=== PATIENT | male | born 1930 | race Caucasian/White ===

== ENCOUNTER 2018-10-01 17:12 | Inpatient (IN) | payer MEDICARE, OTHER ==
[~2018-10-01] VITALS: Ht 175.3 cm; Wt 60.5 kg
[2018-10-01 17:30] VITALS: BP 115/67
[2018-10-01 18:12] LABS: BASOPHILS 0.5 % (0-2); EOSINOPHILS 1.5 % (0-7); HEMOGLOBIN 10.9 g/dL (13.5-17.5); IMMATURE GRANULOCYTES 0.1 % (0-5); LYMPHOCYTES 23.1 % (15-50); MCH 29.7 pg (26.0-34.0); MCHC 32.1 g/dL (31.0-37.0); MCV 92.6 fL (80.0-100.0); MEAN PLATELET VOLUME 9.7 fL (7.4-10.4); MONOCYTES 10.1 % (2-11); NEUTROPHILS 64.7 % (40-80); PLATELET COUNT 255 10x3/uL (130-400); RBC 3.67 10x6/uL (4.20-6.10); RDW 15.9 % (11.5-14.5); WBC 7.5 10x3/uL (4.8-10.8)
[2018-10-01 18:21] LABS: APTT 37.2 SECONDS (22.8-39.4); INR 1.15 (0.85-1.17); PROTIME 14.2 SECONDS (11.6-15.0)
[2018-10-01 18:30] VITALS: BP 118/70
[2018-10-01 18:35] LABS: ALBUMIN 3.6 g/dL (3.4-5.0); ALKALINE PHOSPHATASE 103 U/L (46-116); ALT (SGPT) 18 U/L (10-68); BILIRUBIN - TOTAL 0.62 mg/dL (0.2-1.3); CALC OSMOLALITY 278 mosm/kg (275-300); CALCIUM 8.9 mg/dL (8.5-10.1); CARBON DIOXIDE 22.5 mmol/L (21.0-32.0); CHLORIDE - SERUM 98 mmol/L (98-107); CREATININE - SERUM 1.3 mg/dL (0.6-1.3); POTASSIUM - SERUM 4.4 mmol/L (3.5-5.1); PROTEIN - SERUM 7.4 g/dL (6.4-8.2); SODIUM 136 mmol/L (136-145); UREA NITROGEN 38 mg/dL (7-18); eGFR NON AFRICAN AMERICAN 55 mL/min (90-120)
[2018-10-01 18:36] LABS: GLUCOSE 68 mg/dL (74-106)
[2018-10-01 18:47] LABS: CKMB 5.7 U/L (0.0-3.6); CREATINE KINASE 127 UL (21-232); PRO BNP 19163 pg/mL (0-450); TROPONIN-I 0.052 ng/mL (0.000-0.060)
[2018-10-01 19:15] VITALS: BP 126/75
--- NOTE | 2018-10-01 19:33 | MORECARE ---
CASE MANAGEMENT DISCHARGE SUMMARY PATIENT: ISADORA HERNANDEZ UNIT: [id number] ADM DATE: 10/01/18 AGE: 88 : [birth year] SEX: M ROOM/BED: D.E12 AUTHOR: RANDALLDOC PHYSICIAN: REFERRING PHYSICIAN: ABBI JEAN BAPTISTE MD DATE OF SERVICE: 10/01/18 Discharge Plan Patient Name: ISADORA HERNANDEZ Facility: [facility]:[place] : 1930 Planned Disposition: Home with Home Health Anticipated Discharge Date: 10/04/18 Discharge Date: Expected LOS: 3 Initial Reviewer: [email or web address] Initial Review Date: 10/01/2018 Generated: 10/01/18 8:33 pm DCP- Discharge Planning Updated by [email or web address]: Bhumika Alvarez on 10/01/18 6:[address] Patient Name: ISADORA HERNANDEZ Admission Status: ER Accout number: [id number] Admission Date: 10-01-2018 : 1930 Admission Diagnosis: Attending: ABBI JEAN BAPTISTE Current LOS: 1 Anticipated DC Date: 10-04-2018 Planned Disposition: Home with Home Health Primary Insurance: MEDICARE A & B Discharge Planning Comments: CM met with patient to complete initial dc planning assessment. CM educated patient on the CM role and verbal consent given by patient to complete assessment. Patient lives at home with his . At discharge patient plans to return home and feels this is a safe discharge. CM discussed availability of home health, rehab services, and medical equipment. Patient denied known discharge needs at this time. CM is not sure if patient actually has home health or not. CM will continue to follow and will assist as needed with dc plans/needs. Ruby On Rails Developer: Bhumika Alvarez RN, [facility] DCPIA - Discharge Planning Initial Assessment Updated by [id number]: Bhumika Alvarez on 10/01/18 7:30 pm * Is the patient Alert and Oriented? Yes * How many steps to enter\exit or inside your home? Three * PCP Dr. Elsie [facility] * [facility] * Preadmission Environment Home with Family * ADLs Independent * Equipment Rolling Walker * List name and contact numbers for known caregivers / representatives who currently or will assist patient after discharge: Tran Hernandez - - [phone] Ion Camejo - step son - [phone] Kiesha Camejo - dtr in law - [phone] * Verbal permission to speak to the caregivers and representatives has been obtained from the patient. Yes * Community resources currently utilized Home Health * Please name any agencies selected above. Said home health comes from time to time. He wasnt sure if it was [facility] but said they were out of [facility]. * Additional services required to return to the preadmission environment? No * Can the patient safely return to the preadmission environment? Yes * Has this patient been hospitalized within the prior 30 days at any hospital? No Patient Name: ISADORA HERNANDEZ Page [id number] at 1933 All edits/amendments must be made on the electronic document DICTATION DATE: 10/01/181932 EMERGENCY MAN: JOHNNIE 10/01/181932 RPT#: [id number] NM DATE: STATUS: ADM IN [facility] [address] [place] [address] END OF REPORT
[2018-10-01 20:00] VITALS: BP 106/63
[2018-10-01 20:12] LABS: % SATURATION 11 % (15-55); IRON 34 ug/dl (35-150); TOTAL IRON BIND CAPACITY 285 ug/dl (260-445); UNSAT IRON BIND CAPACITY 251 ug/dl (150-375)
--- NOTE | 2018-10-01 20:59 | NUR ---
RECIEVED TO ROOM 2130 FROM ER VIA STRETCHER. PT A&O. RESPERATIONS NONLABORED ON O2 AT 2 LITERS VIA NC. VITALS STABLE. IV TO RIGHT FA SL, SITE CLEAN AND DRY. MED REC AND HISTORY OBTAINED. PT DENIES PAIN OR NEEDS, BED LOW, CL IN REACH.
[2018-10-01 21:24] LABS: CKMB 5.4 U/L (0.0-3.6); CREATINE KINASE 120 UL (21-232); TROPONIN-I 0.054 ng/mL (0.000-0.060)
[2018-10-01] MEDS ORDERED: POTASSIUM99 M1 PO (21:56)
[2018-10-01] MEDS ORDERED: TOPROL XL25 MG PO (21:56)
[2018-10-01] MEDS ORDERED: ELIQUIS2.5 MG PO (21:57)
[2018-10-01] MEDS ORDERED: GLUCOPHAGE500 MG PO (21:58)
[2018-10-01] MEDS ORDERED: BAYER CHEWABLE81 MG PO (21:58)
[2018-10-01] MEDS ORDERED: TRAZODONE HCL150 MG PO (21:59)
[2018-10-01] MEDS ORDERED: LIPITOR80 MG PO (21:59)
[2018-10-01] MEDS ORDERED: LASIX40 MG PO (22:00)
[2018-10-01] MEDS ORDERED: PHENERGAN25 M1 PO (22:00)
[2018-10-01] MEDS ORDERED: SLOW RELEASE I160 MG PO (22:01)
[2018-10-01] MEDS ORDERED: GLUCOTROL 5 MG T5 MG PO (22:02)
--- NOTE | 2018-10-01 22:19 | NUR ---
SANDWHICH TRAY AND CUP OF COFFEE GIVEN TO PT. NO OTHER NEEDS VOICED AT THIS TIME.
--- NOTE | 2018-10-02 00:21 | NUR ---
RESTING WITH EYES CLOSED, RESPERATIONS NON LABORED. NO S/S DISTRESS NOTED.
[2018-10-02 03:03] LABS: BASOPHILS 0.3 % (0-2); EOSINOPHILS 1.2 % (0-7); HEMATOCRIT 33.3 % (42.0-54.0); HEMOGLOBIN 10.7 g/dL (13.5-17.5); IMMATURE GRANULOCYTES 0.1 % (0-5); LYMPHOCYTES 19.2 % (15-50); MCH 29.4 pg (26.0-34.0); MCHC 32.1 g/dL (31.0-37.0); MCV 91.5 fL (80.0-100.0); MEAN PLATELET VOLUME 10.6 fL (7.4-10.4); MONOCYTES 9.4 % (2-11); NEUTROPHILS 69.8 % (40-80); PLATELET COUNT 225 10x3/uL (130-400); RBC 3.64 10x6/uL (4.20-6.10); RDW 15.7 % (11.5-14.5); WBC 7.6 10x3/uL (4.8-10.8)
[2018-10-02 03:17] VITALS: BP 125/77; BMI 19.2
[2018-10-02 03:29] LABS: ALBUMIN 3.3 g/dL (3.4-5.0); ALKALINE PHOSPHATASE 90 U/L (46-116); ALT (SGPT) 17 U/L (10-68); BILIRUBIN - TOTAL 0.49 mg/dL (0.2-1.3); CALC OSMOLALITY 282 mosm/kg (275-300); CALCIUM 8.5 mg/dL (8.5-10.1); CARBON DIOXIDE 25.2 mmol/L (21.0-32.0); CHLORIDE - SERUM 98 mmol/L (98-107); CKMB 4.8 U/L (0.0-3.6); CREATINE KINASE 115 UL (21-232); CREATININE - SERUM 1.6 mg/dL (0.6-1.3); GLUCOSE 83 mg/dL (74-106); PROTEIN - SERUM 7.3 g/dL (6.4-8.2); SODIUM 136 mmol/L (136-145); TROPONIN-I 0.055 ng/mL (0.000-0.060); UREA NITROGEN 45 mg/dL (7-18); eGFR NON AFRICAN AMERICAN 43 mL/min (90-120)
[2018-10-02 04:00] VITALS: BP 118/70
[2018-10-02 08:15] VITALS: BP 121/64
--- NOTE | 2018-10-02 09:29 | NUR ---
SITTING UP SOB. IV PATENT. CALL LIGHT IN REACH. WILL CONT. PLAN OF CARE.
[2018-10-02 09:36] LABS: CREATINE KINASE 111 UL (21-232); TROPONIN-I 0.056 ng/mL (0.000-0.060)
--- NOTE | 2018-10-02 11:30 | NUR ---
PT IN BED. ALERT AND ORIENTED. PT HAS NO FURTHER NEEDS AT THIS TIME. BED LOW. CL IN REACH.
[2018-10-02 11:52] VITALS: BP 117/62
[2018-10-02 13:02] VITALS: Ht 175.3 cm; Wt 60.5 kg
--- NOTE | 2018-10-02 16:19 | NUR ---
PT'S BS 59. GAVE PT APPLE JUICE AND GIRMA CRACKERS.
[2018-10-02] MEDS ORDERED: ENTRESTO 24 MG1 EACH PO (16:57)
--- NOTE | 2018-10-02 17:04 | NUR ---
PT'S DAUGHTER IN LAW CALLED AND STATES PT TAKES ENTRESTO AT HOME 0.5 TAB OF THE 24-26MG. MED WAS NOT ON PT'S MED REC BUT PT WAS STARTED ON 1 TAB ENTRESTO THIS AM. CALLED AND SPOKE WITH DR. MARTINEZ AND HE STATES TO CHANGE MED TO HALF TAB.
--- NOTE | 2018-10-02 17:45 | NUR ---
PT'S BS NOW 108.
[2018-10-02 20:00] VITALS: BP 91/55
[2018-10-03] VITALS: BP 99/41
[2018-10-03 04:32] VITALS: BP 103/49
[2018-10-03 06:02] LABS: BASOPHILS 0.4 % (0-2); EOSINOPHILS 3.2 % (0-7); HEMATOCRIT 32.1 % (42.0-54.0); HEMOGLOBIN 10.4 g/dL (13.5-17.5); IMMATURE GRANULOCYTES 0.1 % (0-5); MCH 29.4 pg (26.0-34.0); MCHC 32.4 g/dL (31.0-37.0); MCV 90.7 fL (80.0-100.0); MEAN PLATELET VOLUME 10.1 fL (7.4-10.4); MONOCYTES 11.2 % (2-11); NEUTROPHILS 63.1 % (40-80); PLATELET COUNT 246 10x3/uL (130-400); RBC 3.54 10x6/uL (4.20-6.10); RDW 15.9 % (11.5-14.5); WBC 6.9 10x3/uL (4.8-10.8)
[2018-10-03 06:26] LABS: ANION GAP 17.3 mmol/L (8-16); CALCIUM 8.9 mg/dL (8.5-10.1); CARBON DIOXIDE 27.1 mmol/L (21.0-32.0); CREATININE - SERUM 1.6 mg/dL (0.6-1.3); POTASSIUM - SERUM 4.4 mmol/L (3.5-5.1)
--- NOTE | 2018-10-03 07:26 | NUR ---
RESUMGING PT CARE, PT LAYING IN BED AND IS ALERT AND ORIENTED X 3. DENIES NEEDS OR PAIN AT THIS TIME, BED IS IN LOWEST POSTIION WITH RAILS UP X2. CALL LIGHT IN REACH. WILL CONTINUE TO MONITOR AND FOLLOW PLAN OF CARE.
[2018-10-03 09:00] VITALS: BP 98/54
--- NOTE | 2018-10-03 09:49 | NUR ---
UP SOB WITH CALL LIGHT IN REACH. WILL MONITOR NEEDS.
[2018-10-03 11:21] LABS: FOLATE (FOLIC ACID) - SERUM >20.0 ng/mL (>3.0)
[2018-10-03 12:43] VITALS: BP 90/53
--- NOTE | 2018-10-03 15:19 | NUR ---
PT IS SITTING UP ON SIDE OF BED, DENIES NEEDS OR PAIN AT THIS TIME. CALL LIGHT IN REACH, WILL CONTINUE TO MONITOR.
[2018-10-03 16:05] VITALS: BP 119/53
--- NOTE | 2018-10-03 19:51 | NUR ---
RESUMING PATIENT CARE. PATIENT IS ALERT AND ORIENTED. RESPIRATIONS ARE EVEN AND UNLABORED. PATIENT TALKING WITH DAUGHTER AT HOME. DENIES NEEDS AT THIS TIME. NO S/S OF DISTRESS. NO C/O PAIN. CALL LIGHT WITHIN REACH. WILL CPOC.
[2018-10-03 20:00] VITALS: BP 94/51
[2018-10-04] VITALS: BP 91/55
[2018-10-04 04:00] VITALS: BP 95/55
[2018-10-04 07:03] LABS: BASOPHILS 0.5 % (0-2); EOSINOPHILS 2.7 % (0-7); HEMATOCRIT 34.6 % (42.0-54.0); HEMOGLOBIN 11.1 g/dL (13.5-17.5); IMMATURE GRANULOCYTES 0.1 % (0-5); MCH 29.5 pg (26.0-34.0); MCHC 32.1 g/dL (31.0-37.0); MEAN PLATELET VOLUME 10.3 fL (7.4-10.4); MONOCYTES 11.9 % (2-11); NEUTROPHILS 59.8 % (40-80); PLATELET COUNT 255 10x3/uL (130-400); RBC 3.76 10x6/uL (4.20-6.10); RDW 16.2 % (11.5-14.5); WBC 7.8 10x3/uL (4.8-10.8)
[2018-10-04 07:25] LABS: ANION GAP 17.2 mmol/L (8-16); CALCIUM 9.2 mg/dL (8.5-10.1); CARBON DIOXIDE 26.4 mmol/L (21.0-32.0); CREATININE - SERUM 1.7 mg/dL (0.6-1.3); POTASSIUM - SERUM 3.6 mmol/L (3.5-5.1)
[2018-10-04 09:13] VITALS: BP 95/49
[2018-10-04 12:30] VITALS: BP 110/60
[2018-10-04 17:39] VITALS: BP 92/45
--- NOTE | 2018-10-04 19:30 | NUR ---
PT SITTING UP IN BED. PROVIDED BLACK COFFEE PER REQUEST. PT DENIES FURTHER NEEDS AT THIS TIME.
[2018-10-04 20:00] VITALS: BP 123/67
[2018-10-05 00:30] VITALS: BP 116/55
[2018-10-05 04:00] VITALS: BP 109/63
--- NOTE | 2018-10-05 04:21 | NUR ---
RESTING INH BED WITH EYES CLOSED. NO S/S OF DISTRESS OBSERVED. CALL LIGHT IN REACH.
--- NOTE | 2018-10-05 05:12 | NUR ---
FSBS 69 AT THIS TIME. ORANGE JUICE PROVIDED PER PT REQUEST.
[2018-10-05 05:40] LABS: BASOPHILS 0.5 % (0-2); EOSINOPHILS 2.9 % (0-7); HEMATOCRIT 31.6 % (42.0-54.0); HEMOGLOBIN 10.1 g/dL (13.5-17.5); IMMATURE GRANULOCYTES 0.2 % (0-5); LYMPHOCYTES 25.6 % (15-50); MCH 29.4 pg (26.0-34.0); MCV 91.9 fL (80.0-100.0); MEAN PLATELET VOLUME 9.9 fL (7.4-10.4); MONOCYTES 11.3 % (2-11); NEUTROPHILS 59.5 % (40-80); PLATELET COUNT 235 10x3/uL (130-400); RBC 3.44 10x6/uL (4.20-6.10); RDW 16.3 % (11.5-14.5); WBC 6.6 10x3/uL (4.8-10.8)
[2018-10-05 05:53] LABS: ANION GAP 17.5 mmol/L (8-16); CALCIUM 9.1 mg/dL (8.5-10.1); CARBON DIOXIDE 25.9 mmol/L (21.0-32.0); CREATININE - SERUM 1.6 mg/dL (0.6-1.3); POTASSIUM - SERUM 3.4 mmol/L (3.5-5.1)
--- NOTE | 2018-10-05 07:10 | NUR ---
REPORT RECIEVED FROM WIC SITE COORDINATOR AND CARE ASSUMED. PATIENT LAYING IN BED WITH EYES CLOSED AND BREATHING EVENLY. VS ARE GOOD. SR UP X 2 BED IN LOW POSTION AND CALL LIGHT IN REACH. WILL CONTINUE WITH PLAN OF CARE.
[2018-10-05 07:49] VITALS: BP 104/61
[2018-10-05] MEDS ORDERED: ZITHROMAX250 MG PO (09:59)
[2018-10-05] MEDS ORDERED: OMNICEF300 MG PO (09:59)
[2018-10-05] MEDS ORDERED: BUMEX2 MG PO (10:00)
[2018-10-05] MEDS ORDERED: CHLORTHALIDONE25 MG PO (10:00)
--- NOTE | 2018-10-05 10:41 | MORECARE ---
CASE MANAGEMENT DISCHARGE SUMMARY PATIENT: ISADORA HERNANDEZ UNIT: [id number] ADM DATE: 10/01/18 AGE: 88 : [birth year] SEX: M ROOM/BED: D.2131 AUTHOR: STEVEN PEREIRA PHYSICIAN: REFERRING PHYSICIAN: ABBI JEAN BAPTISTE MD DATE OF SERVICE: 10/05/18 Discharge Plan Patient Name: ISADORA HERNANDEZ Facility: [facility]:[place] : 1930 Planned Disposition: Home with Home Health Anticipated Discharge Date: 10/04/18 Discharge Date: Expected LOS: 3 Initial Reviewer: [email or web address] Initial Review Date: 10/01/2018 Generated: 10/05/18 11:40 am Comments DCP- Discharge Planning Updated by [email or web address]: Bhumika Alvarez on 10/05/18 9:[address] Patient Name: ISADORA HERNANDEZ Encounter No: [id number] : 1930 Primary Insurance: MEDICARE A & B Anticipated DC Date: 10-04-2018 Planned Disposition: Home with Home Health External Planned Provider: : DCP follow-up note: Patient and family in agreement with discharge plan. No changes to plan. Case management will follow and assist as needed. Bhumika Alvarez RN, [facility] DCP- Discharge Planning Updated by [email or web address]: Bhumika Alvarez on 10/01/18 6:[address] Patient Name: ISADORA HERNANDEZ Admission Status: ER Accout number: [id number] Admission Date: 10-01-2018 : 1930 Admission Diagnosis: Attending: ABBI JEAN BAPTISTE Current LOS: 1 Anticipated DC Date: 10-04-2018 Planned Disposition: Home with Home Health Primary Insurance: MEDICARE A & B Discharge Planning Comments: CM met with patient to complete initial dc planning assessment. CM educated patient on the CM role and verbal consent given by patient to complete assessment. Patient lives at home with his . At discharge patient plans to return home and feels this is a safe discharge. CM discussed availability of home health, rehab services, and medical equipment. Patient denied known discharge needs at this time. CM is not sure if patient actually has home health or not. CM will continue to follow and will assist as needed with dc plans/needs. Studio Operation Engineer: Bhumika Alvarez RN, [facility] DCPIA - Discharge Planning Initial Assessment Updated by [id number]: Bhumika Alvarez on 10/01/18 7:30 pm * Is the patient Alert and Oriented? Yes * How many steps to enter\exit or inside your home? Three * PCP Dr. Elsie [facility] * [facility] * Preadmission Environment Home with Family * ADLs Independent * Equipment Rolling Walker * List name and contact numbers for known caregivers / representatives who currently or will assist patient after discharge: Tran Hernandez - - [phone] Ion Camejo - step son - [phone] Kiesha Camejo - dtr in law - [phone] * Verbal permission to speak to the caregivers and representatives has been obtained from the patient. Yes * Community resources currently utilized Home Health * Please name any agencies selected above. Said home health comes from time to time. He wasnt sure if it was [facility] but said they were out of [facility]. * Additional services required to return to the preadmission environment? No * Can the patient safely return to the preadmission environment? Yes * Has this patient been hospitalized within the prior 30 days at any hospital? No Coverage Notice Reviewer: [id number] - Bhumika Alvarez Notice Issued Date-Time: 10/05/2018 10:25 Notice Type: IM Discharge Notice Notice Delivered To: Patient Relationship to Patient: Senior Administrative Services Officer Name: Delivery Method: HAND - Hand Delivered Doretha Days: Prior Verbal Notification: Recipient Understood Notice: Yes Recipient Signature: Yes Med Rec Note Co-signed by Attending: Coverage Notice Comment: Last DP export: 10/01/18 6:33 p Patient Name: ISADORA HERNANDEZ Page [id number] Electronically Signed by [facility] CITYBob on 10/05/18 at 1041 All edits/amendments must be made on the electronic document DICTATION DATE: 10/05/18 1040 RESTORATIVE REHAB AIDE: JOHNNIE 10/05/18 1040 RPT#: [id number] DC DATE: STATUS: ADM IN [facility] [address] [place] [address] END OF REPORT
[2018-10-05 12:11] VITALS: BP 91/46
--- NOTE | 2018-10-07 09:18 | MORECARE ---
CASE MANAGEMENT DISCHARGE SUMMARY PATIENT: ISADORA HERNANDEZ UNIT: [id number] ADM DATE: 10/01/18 AGE: 88 : [birth year] SEX: M ROOM/BED: D.2131 AUTHOR: STEVEN PEREIRA PHYSICIAN: REFERRING PHYSICIAN: ABBI JEAN BAPTISTE MD DATE OF SERVICE: 10/07/18 Discharge Plan Patient Name: ISADORA HERNANDEZ Facility: [facility]:[place] : 1930 Planned Disposition: Home with Home Health Anticipated Discharge Date: 10/04/18 Discharge Date: 10/05/2018 Expected LOS: 3 Initial Reviewer: [email or web address] Initial Review Date: 10/01/2018 Generated: 10/07/18 10:18 am Comments DCP- Discharge Planning Updated by [email or web address]: Oliver Echevarria on 10/07/18 8:[address] Patient Name: ISADORA HERNANDEZ Encounter No: [id number] : 1930 Primary Insurance: MEDICARE A & B Anticipated DC Date: 10-04-2018 Planned Disposition: Home with Home Health External Planned Provider: : DCP follow-up note: Patient and family in agreement with discharge plan. No changes to plan. Case management will follow and assist as needed. Bhumika Alvarez RN, [facility] DCP- Discharge Planning Updated by [email or web address]: Bhumika Alvarez on 10/01/18 6:[address] Patient Name: ISADORA HERNANDEZ Admission Status: ER Accout number: [id number] Admission Date: 10-01-2018 : 1930 Admission Diagnosis: Attending: ABBI JEAN BAPTISTE Current LOS: 1 Anticipated DC Date: 10-04-2018 Planned Disposition: Home with Home Health Primary Insurance: MEDICARE A & B Discharge Planning Comments: CM met with patient to complete initial dc planning assessment. CM educated patient on the CM role and verbal consent given by patient to complete assessment. Patient lives at home with his . At discharge patient plans to return home and feels this is a safe discharge. CM discussed availability of home health, rehab services, and medical equipment. Patient denied known discharge needs at this time. CM is not sure if patient actually has home health or not. CM will continue to follow and will assist as needed with dc plans/needs. Supervisor Special Education: Bhumika Alvarez RN, [facility] DCPIA - Discharge Planning Initial Assessment Updated by [email or web address]: Bhumika Alvarez on 10/01/18 7:30 pm * Is the patient Alert and Oriented? Yes * How many steps to enter\exit or inside your home? Three * PCP Dr. Elsie [facility] * Pharmacy [facility] * Preadmission Environment Home with Family * ADLs Independent * Equipment Rolling Walker * List name and contact numbers for known caregivers / representatives who currently or will assist patient after discharge: Tran Hernandez - - [phone] Ion Camejo - step son - [phone] Kiesha Nell - dtr in law - [phone] * Verbal permission to speak to the caregivers and representatives has been obtained from the patient. Yes * Community resources currently utilized Home Health * Please name any agencies selected above. Said home health comes from time to time. He wasnt sure if it was [facility] but said they were out of [facility]. * Additional services required to return to the preadmission environment? No * Can the patient safely return to the preadmission environment? Yes * Has this patient been hospitalized within the prior 30 days at any hospital? No Coverage Notice Reviewer: [id number] - Bhumika Alvarez Notice Issued Date-Time: 10/05/2018 10:25 Notice Type: IM Discharge Notice Notice Delivered To: Patient Relationship to Patient: Welt Stitch Cleaner Name: Delivery Method: HAND - Hand Delivered Doretha Days: Prior Verbal Notification: Recipient Understood Notice: Yes Recipient Signature: Yes Med Rec Note Co-signed by Attending: Coverage Notice Comment: Last DP export: 10/05/18 9:40 a Patient Name: ISADORA HERNANDEZ Page 23092 at 0918 All edits/amendments must be made on the electronic document DICTATION DATE: 10/07/18916 HAT DESIGNER: JOHNNIE 10/07/18916 RPT#: [id number] DC DATE:10/05/18 STATUS: DIS IN [facility] [address] [place] [address] END OF REPORT
--- NOTE | 2018-10-07 09:26 | MORECARE ---
CASE MANAGEMENT DISCHARGE SUMMARY PATIENT: ISADORA HERNANDEZ UNIT: [id number] ADM DATE: 10/01/18 AGE: 88 : [birth year] SEX: M ROOM/BED: D.2131 AUTHOR: STEVEN PEREIRA PHYSICIAN: REFERRING PHYSICIAN: ABBI JEAN BAPTISTE MD DATE OF SERVICE: 10/07/18 Discharge Plan Patient Name: ISADORA HERNANDEZ Facility: [facility]:[place] : 1930 Planned Disposition: Home with Home Health Anticipated Discharge Date: 10/04/18 Discharge Date: 10/05/2018 Expected LOS: 3 Initial Reviewer: [email or web address] Initial Review Date: 10/01/2018 Generated: 10/07/18 10:25 am Comments DCP- Discharge Planning Updated by [email or web address]: Oliver Echevarria on 10/07/18 8:[address] Patient Name: ISADORA HERNANDEZ Encounter No: [id number] : 1930 Primary Insurance: MEDICARE A & B Anticipated DC Date: 10-04-2018 Planned Disposition: Home with Home Health External Planned Provider: : DCP follow-up note: Patient and family in agreement with discharge plan. No changes to plan. Case management will follow and assist as needed. Bhumika Alvarez RN, [facility] DCP- Discharge Planning Updated by [email or web address]: Bhumika Alvarez on 10/01/18 6:[address] Patient Name: ISADORA HERNANDEZ Admission Status: ER Accout number: [id number] Admission Date: 10-01-2018 : 1930 Admission Diagnosis: Attending: ABBI JEAN BAPTISTE Current LOS: 1 Anticipated DC Date: 10-04-2018 Planned Disposition: Home with Home Health Primary Insurance: MEDICARE A & B Discharge Planning Comments: CM met with patient to complete initial dc planning assessment. CM educated patient on the CM role and verbal consent given by patient to complete assessment. Patient lives at home with his . At discharge patient plans to return home and feels this is a safe discharge. CM discussed availability of home health, rehab services, and medical equipment. Patient denied known discharge needs at this time. CM is not sure if patient actually has home health or not. CM will continue to follow and will assist as needed with dc plans/needs. Director Records Management: Bhumika Alvarez RN, [facility] DCPIA - Discharge Planning Initial Assessment Updated by [email or web address]: Bhumika Alvarez on 10/01/18 7:30 pm * Is the patient Alert and Oriented? Yes * How many steps to enter\exit or inside your home? Three * PCP Dr. Elsie [facility] * [facility] * Preadmission Environment Home with Family * ADLs Independent * Equipment Rolling Walker * List name and contact numbers for known caregivers / representatives who currently or will assist patient after discharge: Tran Hernandez - - [phone] Ion Camejo - step son - [phone] Kiesha Camejo - dtr in law - [phone] * Verbal permission to speak to the caregivers and representatives has been obtained from the patient. Yes * Community resources currently utilized Home Health * Please name any agencies selected above. Said home health comes from time to time. He wasnt sure if it was [facility] but said they were out of [facility]. * Additional services required to return to the preadmission environment? No * Can the patient safely return to the preadmission environment? Yes * Has this patient been hospitalized within the prior 30 days at any hospital? No External Providers External Provider: [facility] Next Contact Date: 10/07/2018 Service Request Date: Service Type: Resolution: Reviewer: Comments: Coverage Notice Reviewer: [id number] - Bhumika Alvarez Notice Issued Date-Time: 10/05/2018 10:25 Notice Type: IM Discharge Notice Notice Delivered To: Patient Relationship to Patient: Content Designer Name: Delivery Method: HAND - Hand Delivered Doretha Days: Prior Verbal Notification: Recipient Understood Notice: Yes Recipient Signature: Yes Med Rec Note Co-signed by Attending: Coverage Notice Comment: Last DP export: 10/07/18 8:18 a Patient Name: ISADORA HERNANDEZ Page [id number] at 0926 All edits/amendments must be made on the electronic document DICTATION DATE: 10/07/18924 DRY WALL PLASTERER: JOHNNIE 10/07/18924 RPT#: [id number] DC DATE:10/05/18 STATUS: DIS IN [facility] [address] [place] [address] END OF REPORT
--- NOTE | 2018-10-07 09:39 | MORECARE ---
CASE MANAGEMENT DISCHARGE SUMMARY PATIENT: ISADORA HERNANDEZ UNIT: [id number] ADM DATE: 10/01/18 AGE: 88 : [birth year] SEX: M ROOM/BED: D.2131 AUTHOR: STEVEN PEREIRA PHYSICIAN: REFERRING PHYSICIAN: ABBI JEAN BAPTISTE MD DATE OF SERVICE: 10/07/18 Discharge Plan Patient Name: ISADORA HERNANDEZ Facility: [facility]:[place] : 1930 Planned Disposition: Home with Home Health Anticipated Discharge Date: 10/04/18 Discharge Date: 10/05/2018 Expected LOS: 3 Initial Reviewer: [email or web address] Initial Review Date: 10/01/2018 Generated: 10/07/18 10:38 am Comments DCP- Discharge Planning Updated by [email or web address]: Oliver Echevarria on 10/07/18 8:[address] Patient Name: ISADORA HERNANDEZ Encounter No: [id number] : 1930 Primary Insurance: MEDICARE A & B Anticipated DC Date: 10-04-2018 Planned Disposition: Home with Home Health External Planned Provider: [facility] DCP follow-up note: CM REVIEWED CHART THAT INDICATED PT DISCHARGED HOME OVER WEEKEND. CM CALLED [facility], , SPOKE TO LEON WHO INFORMED CM THAT [facility] HAS RESUMED PT'S HOME HEALTH CARE TODAY AND REQUESTED HOSPITAL STAY AND DISCHARGE INFORMATION. CM FAXED REQUESTED INFORMATION FOR HOME HEALTH RESUMPTION TO [facility] AT [phone]. NO FUTHER NEEDS NOTED. KATYA Pelletier DCP- Discharge Planning Updated by [email or web address]: Oliver Echevarria on 10/07/18 8:[address] Patient Name: ISADORA HERNANDEZ Encounter No: [id number] : 1930 Primary Insurance: MEDICARE A & B Anticipated DC Date: 10-04-2018 Planned Disposition: Home with Home Health External Planned Provider: : DCP follow-up note: Patient and family in agreement with discharge plan. No changes to plan. Case management will follow and assist as needed. Bhumika Alvarez RN, [facility] DCP- Discharge Planning Updated by [id number]: Bhumika Alvarez on 10/01/18 6:[address] Patient Name: ISADORA HERNANDEZ Admission Status: ER Accout number: [id number] Admission Date: 10-01-2018 : 1930 Admission Diagnosis: Attending: ABBI JEAN BAPTISTE Current LOS: 1 Anticipated DC Date: 10-04-2018 Planned Disposition: Home with Home Health Primary Insurance: MEDICARE A & B Discharge Planning Comments: CM met with patient to complete initial dc planning assessment. CM educated patient on the CM role and verbal consent given by patient to complete assessment. Patient lives at home with his . At discharge patient plans to return home and feels this is a safe discharge. CM discussed availability of home health, rehab services, and medical equipment. Patient denied known discharge needs at this time. CM is not sure if patient actually has home health or not. CM will continue to follow and will assist as needed with dc plans/needs. Airport Sales Agent: Bhumika Alvarez RN, [facility] DCPIA - Discharge Planning Initial Assessment Updated by [email or web address]: Bhumika Alvarez on 10/01/18 7:30 pm * Is the patient Alert and Oriented? Yes * How many steps to enter\exit or inside your home? Three * PCP Dr. Elsie [facility] * Pharmacy [facility] * Preadmission Environment Home with Family * ADLs Independent * Equipment Rolling Walker * List name and contact numbers for known caregivers / representatives who currently or will assist patient after discharge: Tran Hernandez - - [phone] Ion Camejo - step son - [phone] Kiesha Nell - dtr in law - [phone] * Verbal permission to speak to the caregivers and representatives has been obtained from the patient. Yes * Community resources currently utilized Home Health * Please name any agencies selected above. Said home health comes from time to time. He wasnt sure if it was [facility] but said they were out of [facility]. * Additional services required to return to the preadmission environment? No * Can the patient safely return to the preadmission environment? Yes * Has this patient been hospitalized within the prior 30 days at any hospital? No Coverage Notice Reviewer: [email or web address] Alvarez Notice Issued Date-Time: 10/05/2018 10:25 Notice Type: IM Discharge Notice Notice Delivered To: Patient Relationship to Patient: Job Placement Counselor Name: Delivery Method: HAND - Hand Delivered Doretha Days: Prior Verbal Notification: Recipient Understood Notice: Yes Recipient Signature: Yes Med Rec Note Co-signed by Attending: Coverage Notice Comment: Last DP export: 10/07/18 8:26 a Patient Name: ISADORA HERNANDEZ Page 49419 at 0939 All edits/amendments must be made on the electronic document DICTATION DATE: 10/07/18937 PART TIME FLEXIBLE CLERK: JOHNNIE 10/07/18937 RPT#: [id number] DC DATE:10/05/18 STATUS: DIS IN [facility] [address] [place] [address] END OF REPORT
== END 2018-10-05 15:00 | disposition home health service (06) | DRG 291 ==
LOC: D.ER 17:12 → D.M2 19:16 → D.EDHOLD 19:16 → D.M2 19:31
PROVIDERS: Family Medicine; ADMIT Internal Medicine Nephrology
DX: I13.0 Hypertensive heart and chronic kidney disease with heart failure and stage 1 through stage 4 chronic kidney disease, or unspecified chronic kidney disease (principal); I82.220 Acute embolism and thrombosis of inferior vena cava; J98.11 Atelectasis; N17.9 Acute kidney failure, unspecified; I50.9 Heart failure, unspecified; I08.1 Rheumatic disorders of both mitral and tricuspid valves; R79.89 Other specified abnormal findings of blood chemistry; D50.9 Iron deficiency anemia, unspecified; E78.5 Hyperlipidemia, unspecified; I25.10 Atherosclerotic heart disease of native coronary artery without angina pectoris; J44.9 Chronic obstructive pulmonary disease, unspecified; I48.2 Chronic atrial fibrillation; N18.9 Chronic kidney disease, unspecified

== ENCOUNTER 2019-01-10 01:25 | Inpatient (IN) | payer MEDICARE, OTHER ==
[2019-01-10] VITALS (24 sets, daily range): BP systolic 82–127; BP diastolic 47–83; BMI 20.2; BMI 19.6
[~2019-01-10 01:25] MED LIST: BAYER CHEWABLE81 MG PO; BUMEX2 MG PO; CHLORTHALIDONE25 MG PO; ELIQUIS2.5 MG PO; ENTRESTO 24 MG1 EACH PO; GLUCOPHAGE500 MG PO; GLUCOTROL 5 MG T5 MG PO; LASIX40 MG PO; LIPITOR80 MG PO; OMNICEF300 MG PO; PHENERGAN25 M1 PO; POTASSIUM99 M1 PO; SLOW RELEASE I160 MG PO; TOPROL XL25 MG PO; TRAZODONE HCL150 MG PO; ZITHROMAX250 MG PO
[2019-01-10 02:15] LABS: BASOPHILS 0.1 % (0-2); EOSINOPHILS 0 % (0-7); HEMOGLOBIN 10.5 g/dL (13.5-17.5); IMMATURE GRANULOCYTES 0.2 % (0-5); LYMPHOCYTES 10.3 % (15-50); MCH 29.7 pg (26.0-34.0); MCHC 32.8 g/dL (31.0-37.0); MCV 90.7 fL (80.0-100.0); MEAN PLATELET VOLUME 10.5 fL (7.4-10.4); MONOCYTES 10.6 % (2-11); NEUTROPHILS 78.8 % (40-80); PLATELET COUNT 207 10x3/uL (130-400); RBC 3.53 10x6/uL (4.20-6.10); RDW 15.5 % (11.5-14.5); WBC 8.5 10x3/uL (4.8-10.8)
[2019-01-10 02:26] LABS: APTT 45.1 SECONDS (22.8-39.4); INR 2.21 (0.85-1.17); PROTIME 23.9 SECONDS (11.6-15.0)
[2019-01-10 02:30] LABS: ALBUMIN 3.4 g/dL (3.4-5.0); ALKALINE PHOSPHATASE 271 U/L (46-116); ALT (SGPT) 516 U/L (10-68); BILIRUBIN - TOTAL 1.94 mg/dL (0.2-1.3); CALC OSMOLALITY 301 mosm/kg (275-300); CALCIUM 9.3 mg/dL (8.5-10.1); CARBON DIOXIDE 25.8 mmol/L (21.0-32.0); CHLORIDE - SERUM 95 mmol/L (98-107); POTASSIUM - SERUM 5.3 mmol/L (3.5-5.1); PROTEIN - SERUM 7.4 g/dL (6.4-8.2); SODIUM 133 mmol/L (136-145); UREA NITROGEN 98 mg/dL (7-18); eGFR NON AFRICAN AMERICAN 34 mL/min (90-120)
[2019-01-10 02:31] LABS: GLUCOSE 191 mg/dL (74-106)
[2019-01-10 02:48] LABS: CKMB 2.8 U/L (0.0-3.6); CREATINE KINASE 82 UL (21-232); PRO BNP 53501 pg/mL (0-450)
--- NOTE | 2019-01-10 02:48 | NUR ---
RECEIVED PT FROM ER VIA STRETCHER TO ROOM 2314. PT WAS MOVED TO ICU BED AND ATTACHED TO MONITORS. ALL MONITORS APPEAR TO BE WORKING. ADMISSION ASSESSMENT COMPLETED, SEE FLOWSHEET FOR DETAILS. PT IS COMPLAINING OF FEELING VERY SHORT OF BREATH AND WANTS TO BE SITTING STRAIGHT UP IN THE BED. PT FELL ASLEEP ONCE ALL QUESTIONS WERE ANSWERED FOR ADMISSION INFORMATION. ANSWERS QUESTIONS APPROIATELY. NO SIGNS OF ACUTE DISTRESS. WILL CONTINUE TO MONITOR.
[2019-01-10 02:49] LABS: TROPONIN-I 0.096 ng/mL (0.000-0.060)
--- NOTE | 2019-01-10 05:00 | NUR ---
PT IS SITTING UP IN BED WATCHING TV AT THIS TIME. NO SIGNS OF ACUTE DISTRESS. VSS. WILL CONTINUE TO MONITOR.
--- NOTE | 2019-01-10 07:00 | NUR ---
SHIFT ASSESSMENT COMPLETED, PT CARE ASSUMED. MONITORS ON AND WORKING, VITALS STABLE, GALARZA STAT LOCKED IN PLACE, NO SIGNS/SYMPTOMS OF PAIN OR DISCOMFORT NOTED, CALL LIGHT WITHIN REACH, SEE FLOW SHEET FOR FURTHER DETAILS. WILL CONTINUE TO OBSERVE.
--- NOTE | 2019-01-10 09:00 | NUR ---
PT SITTING UP IN BED, MONITORS ON AND WORKING, VITALS STABLE, NO SIGNS/SYMPTOMS OF PAIN OR DISCOMFORT NOTED AT THIS TIME. CALL LIGHT WITHIN REACH, WILL CONTINUE TO OBSERVE.
[2019-01-10 09:47] LABS: % SATURATION 10 % (15-55); IRON 26 ug/dl (35-150); TOTAL IRON BIND CAPACITY 248 ug/dl (260-445); UNSAT IRON BIND CAPACITY 222 ug/dl (150-375)
--- NOTE | 2019-01-10 11:00 | NUR ---
FAMILY AT BEDSIDE, UPDATE PROVIDED. PT TURNED AND REPOSITIONED FOR COMFORT, MONITORS ON AND WORKING, VITALS STABLE. CARDIO CONSULTED. CALL LIGHT WITHIN REACH, WILL CONTINUE TO OBSERVE.
[2019-01-10 11:49] LABS: CKMB 3.2 U/L (0.0-3.6); CREATINE KINASE 111 UL (21-232); TROPONIN-I 0.056 ng/mL (0.000-0.060)
--- NOTE | 2019-01-10 13:00 | NUR ---
PT TURNED AND REPOSITIONED FOR COMFORT, MONITORS ON AND WORKING, CALL LIGHT WITHIN REACH, WILL CONTINUE TO OBSERVE.
--- NOTE | 2019-01-10 14:00 | NUR ---
REC'D ORDER PER DR TOBAR, DOBUTAMINE INTIATED, MONITORS ON AND WORKING.
[2019-01-10 14:56] LABS: CKMB 3.6 U/L (0.0-3.6); CREATINE KINASE 79 UL (21-232)
[2019-01-10 14:59] LABS: TROPONIN-I 0.074 ng/mL (0.000-0.060)
--- NOTE | 2019-01-10 15:00 | NUR ---
NO CHANGES, SEE FLOW SHEET FOR FURTHER DETAILS, WILL CONTINUE TO OBSERVE.
--- NOTE | 2019-01-10 17:00 | NUR ---
FAMILY AT BEDSIDE, UPDATE PROVIDED, NO SIGNS/SYMPTOMS OF PAIN OR DISCOMFORT NOTED. CALL LIGHT WITHIN REACH, WILL CONTINUE TO OBSERVE.
--- NOTE | 2019-01-10 19:00 | NUR ---
REPORT RECEIVED INITIAL ASSESSMENT COMPLETE PT SLEEPY BUT AROUSES EASILY. ORIENTED. FOLLOWS COMMANDS. SEE ASSESSMENT CM ALARMS ON AND AUDIBLE
--- NOTE | 2019-01-10 20:00 | NUR ---
DAUGHTER IN LAW AT BEDSIDE FOR VISITATION UPDATED AND QUESTIONS ASKED
[2019-01-10 20:51] LABS: CKMB 3.6 U/L (0.0-3.6); CREATINE KINASE 74 UL (21-232); TROPONIN-I 0.049 ng/mL (0.000-0.060)
--- NOTE | 2019-01-10 21:00 | NUR ---
REPOSITIONED PT TO SIDE AFTER PULLING UP IN BED BUTTOCKS INTACT MEPILEX PLACED FOR PROTECTION
--- NOTE | 2019-01-10 22:25 | NUR ---
ACCCUCHECK LOW 61 ORANGE JUICE TIMES 1 GIVEN PT SWALLOWS WITHOUT DIFFICULTY WILL RECHECK
--- NOTE | 2019-01-10 23:00 | NUR ---
REASSESSMENT COMPLETE DOBUTAMINE CONITNUES AT SET RATE 5 MCG. PT RESTING QUIETLY DENIES PAIN SAYS BED NOT COMFORTABLE BUT NOT IN PAIN. LEFT PIV PATENT. DENIES SOB, RESP EVEN NONLABORED. GALARZA DRAINING CLEAR YELLOW URINE. BLE WITH 2 +EDEMA BUT DAUGHTER IN LAW STATED EARLIER THAT MUCH BETTER HE WAS MUCH MORE SWOLLEN AND WEEPING PRIOR TO THIS ADMISSION.
[2019-01-11] VITALS (23 sets, daily range): BP systolic 74–114; BP diastolic 43–66
--- NOTE | 2019-01-11 00:53 | NUR ---
RECHECK ACCUCHECK UP TO 78
--- NOTE | 2019-01-11 03:00 | NUR ---
REASSESSMENT MADE PT DENIES PAIN JUST GENERALIZED DISCOMFORT AND NOT COMFORTABLE IN BED. FREQUENT REPOSITIONING PER PT REQUEST.
[2019-01-11 03:22] LABS: BASOPHILS 0.1 % (0-2); EOSINOPHILS 0.8 % (0-7); HEMATOCRIT 29.7 % (42.0-54.0); HEMOGLOBIN 9.8 g/dL (13.5-17.5); IMMATURE GRANULOCYTES 0.2 % (0-5); LYMPHOCYTES 10.2 % (15-50); MCH 29.9 pg (26.0-34.0); MCV 90.5 fL (80.0-100.0); MEAN PLATELET VOLUME 11.9 fL (7.4-10.4); MONOCYTES 10.2 % (2-11); NEUTROPHILS 78.5 % (40-80); RBC 3.28 10x6/uL (4.20-6.10); RDW 15.6 % (11.5-14.5); WBC 8.7 10x3/uL (4.8-10.8)
[2019-01-11 03:23] LABS: PLATELET COUNT 119 10x3/uL (130-400)
[2019-01-11 03:29] LABS: ALBUMIN 2.7 g/dL (3.4-5.0); BILIRUBIN - TOTAL 1.11 mg/dL (0.2-1.3); CALCIUM 8.9 mg/dL (8.5-10.1); CARBON DIOXIDE 25.8 mmol/L (21.0-32.0); CREATININE - SERUM 1.8 mg/dL (0.6-1.3); PROTEIN - SERUM 6.2 g/dL (6.4-8.2)
--- NOTE | 2019-01-11 03:30 | NUR ---
LAB CALLED LOW SUGAR OF 54 ORANGE JUICE GIVEN TIMES ONE PT SWALLOWED WITHOUT DIFFICULTY
[2019-01-11 03:37] LABS: ANION GAP 15.5 mmol/L (8-16); POTASSIUM - SERUM 4.3 mmol/L (3.5-5.1)
--- NOTE | 2019-01-11 04:00 | NUR ---
RECHECKED ACCUCHECK AFTER ORANGE JUICE STILL LOW 54 ANOTHER ORANGE JUICE GIVEN
--- NOTE | 2019-01-11 04:43 | NUR ---
RECHECKED ACCUCHECK 98
--- NOTE | 2019-01-11 05:14 | NUR ---
24 BEAT RUN OF VTACH ASYMPTOMATIC PT ALERT NO C/O. HAS PACER/DEFIB COMBO NO REACTION FROM DEFIB
--- NOTE | 2019-01-11 05:45 | NUR ---
ANSWERED CALL LIGHT PT WANTING TO BE PULLED UP IN BED, KEEPS SLIPPING DOWN IN BED. REPOSITIONED AND GIVEN WATER. PT DOES NOT WANT BATH AT THIS TIME JUST DOESNT FEEL LIKE IT
--- NOTE | 2019-01-11 06:10 | NUR ---
ANSWERED CALL LIGHT PT WANTS PILLOW TAKEN OUT FROM UNDER LEGS
[2019-01-11 06:17] LABS: APPEARANCE HAZY (CLEAR); BACTERIA FEW /hpf (NONE SEEN); BILIRUBIN NEGATIVE (NEGATIVE); COLOR YELLOW (YELLOW); EPITHELIAL CELLS 0-5 /hpf (0-5); GLUCOSE NEGATIVE (NEGATIVE); KETONE NEGATIVE (NEGATIVE); NITRITE NEGATIVE (NEGATIVE); PROTEIN NEGATIVE (NEGATIVE); RED CELLS - URINE 0-5 /hpf (0-5); SPECIFIC GRAVITY 1.005 (1.005-1.020); UROBILINOGEN NORMAL (NORMAL); WHITE CELLS - URINE 0-5 /hpf (0-5)
--- NOTE | 2019-01-11 06:29 | NUR ---
ANSWERED PTS CALL LIGHT WANTING TO BE REPOSITIONED IN BED JUST NOT COMFORTABLE REPOSITIONED PILLOW PLACED BACK UNDER LEGS PER REQUEST. ACCUCHECK 82.
--- NOTE | 2019-01-11 07:00 | NUR ---
REPORT TO GRICELDA PEREZ TO INFORM PHYSICIANS OF RUN OF VTACH TELEMETRY STRIP WITH NO DEFIB RESPONSE AND ALSO INFORMED OF PTS INCREASING LEG DISCOMFORT/CRAMPING EXPECTED WITH DIURESIS PT DENIES PAIN WHEN ASKED BUT DOES SAY LEGS ARE CRAMPING AND BECOMING MORE UNCOMFORTABLE.
--- NOTE | 2019-01-11 07:20 | NUR ---
ASKED PT WHEN PACER/DEFIB WAS PLACED HE LOOKED IN WALLET WHICH WAS IN BED WITH HIM FOUND CARD. COPY MADE PLACED IN CHART AND DAY SHIFT INFORMED. ALSO SPOKE WITH PT ABOUT LETTING DAUGHTER IN LAW KEEP HIS WALLET AND POCKET OF INSURANCE MED CARDS. PT STATED HE WOULD GIVE TO HER FOR SAFEKEEPING.
--- NOTE | 2019-01-11 08:00 | NUR ---
AWAKE AND ALERT REORIENTATED DATE. FAMILY HERE UPDATE GIVEN. BREAKFAST SERVED ATE WELL. SAT UP ON SIDE OF BED. TOLERATED FAIR. GALARZA CATH PATENT. IV LEFT FOREARM INFUSING WITH DOBUTAMINE AT 5 MCG/KG/MIN. MONITOR JUNCTIONAL AFTB.
--- NOTE | 2019-01-11 09:53 | NUR ---
TALKED [facility] ABOUT PATIENT PACEMAKER STATES IT IS SET FOR DEFIB TO FIRE IF PATIENT HAS V TACH RATE GREATER THAN 181 FOR 16 BEATS AND THIS IS STANDARD FOR DR. MARCELINO.
[2019-01-11 10:10] LABS: FOLATE (FOLIC ACID) - SERUM >20.0 ng/mL (>3.0)
--- NOTE | 2019-01-11 10:13 | NUR ---
ORANGE JUICE GIVEN FOR ACCHECK OF 64
--- NOTE | 2019-01-11 14:43 | NUR ---
Meds given. Pt resting quietly. No changes from previous assessment. Cont with POC
--- NOTE | 2019-01-11 18:02 | NUR ---
Medications given. New iv started to left upper arm. cont with poc.
--- NOTE | 2019-01-11 19:00 | NUR ---
REPORT RECEIVED INITIAL ASSESSMENT COMPLETE. PT SLEEPING AWAKENS TO CALLING HIS NAME. ORIENTED DENIES PAIN OR SOB FOLLOWS COMMANDS. 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 LEFT ARM PIV WITH DOBUTAMINE GTT AT 5 MCG SET RATE. IMPLANTED PACER/DEFIB NOTED TO CHEST PLACED 04/2018. PIV UPPER ARM LEFT SIDE PIV NOTED WITH IRON INFUSING ALMOST COMPLETE. IV SITE LEAKING RED TINGED FLUID FROM HUB NOT TIGHT TO CATHLON. DRESSING REMOVED TIGHTENED REDRESSED,FLUSHES EASILY WITH NS SALINE LOCKED IRON COMPLETE. GALARZA IN PLACE DRAINING YELLOW URINE TO COLLECTION BAG SET IN ICE FOR 24 HOUR LAB TEST. REPOSITIONED PT FOR COMFORT SIDE RAILS UP TIMES 3 FOR BED MOBILITY AND SAFETY. PT DENIES NEEDS AT THIS TIME CALL LIGHT IN REACH.
--- NOTE | 2019-01-11 20:00 | NUR ---
DAUGHTER IN LAW SETH AT BEDSIDE FOR VISITATION UPDATE GIVEN AND QUESTIONS ANSWERED. PT RESTING QUIELTY WITH EYES CLOSED AT THIS ITME NO DISTRESS NOTED
--- NOTE | 2019-01-11 21:00 | NUR ---
DAUGHTER IN LAW REMAINS AT BEDSIDE ASSISTED WITH REPOSITIONING PILLOWS FOR PATIENT COMFORT. DENIES PAIN/SOB CONT POC WILL CONT TO MONITOR.
--- NOTE | 2019-01-11 22:00 | NUR ---
PTS DAUGHTER IN LAW HEADING OUT VISITATION OVER SPOKE WITH PATIENT ABOUT GETTING BATH DONE TONIGHT MAY HELP HIM REST BETTER PT SAID "NO I JUST DONT FEEL LIKE IT RIGHT NOW THANK YOU THOUGH" INFORMED PT OK BUT DEFINITELY NEED TO DO IN AM TO GET CLEANED UP AND LINENS CHANGED. HE STATED "OK ILL DO IN MORNING"
--- NOTE | 2019-01-11 22:20 | NUR ---
DIALYSIS COMPLETE NURSE GAVE REPORT OF 2LITERS REMOVED PT TOLERATED WELL. PRN MED FOR PAIN EFFECTIVE PT RESTING QUIETLY WITH EYES CLOSED. PTS DOSE OF LASIX WAS NOT GIVEN SINCE DIALYSIS JUST FINISHED
--- NOTE | 2019-01-11 22:30 | NUR ---
ANSWERED PTS CALL LIGHT HE HAS SLIPPED DOWN IN BED REPOSITIONED AND HEELS ELEVATED PT DENIES PAIN OR SOB AT THIS TIME CONTINUE POC
--- NOTE | 2019-01-11 23:00 | NUR ---
REASSESSMENT MADE PT DENIES SOB OR CP DOES COMPLAIN OF JUST NOT COMFORTABLE BUT REFUSES PAIN MEDICINE AT THIS TIME WILL CONTINUE TO MONITOR REPOSITIONED FOR COMFORT. SEE FLOWSHEET CPOC
[2019-01-12] VITALS (18 sets, daily range): BP systolic 81–124; BP diastolic 45–68
--- NOTE | 2019-01-12 01:00 | NUR ---
PT RESTING QUIETLY WITH EYES CLOSED NO DISTRES NOTED CPOC
--- NOTE | 2019-01-12 02:26 | NUR ---
ANSWERED PTS CALL LIGHT HE IS WANTING TO GET UP OUT OF BED AND WALK AROUND. INFORMED HIM AGAIN OF SAFETY ISSUE. PTS DAUGHTER IN LAW INFORMED THIS NURSE LAST PM THAT SHE THOUGHT SHE WAS DOING GOOD BY LETTING HIM SIT UP ON SIDE OF BED BUT THAT HE ALMOST FELL OUT WITH LOW B/P AND SOB. PT SAID "IM JUST TIRED OF THIS BED MY BACK AND LEGS ARE SORE". GAVE PT HIS PRN PAIN MED THAT WAS ORDERED MORPHINE IT WAS ORDERED 2 MG BUT I ONLY GAVE 1 MG TO START WITH DID NOT WANT TO OVER DO WILL CHECK EFFECTIVENESS IN 30 MIN AND IF PT STILL HURTING WILL GIVE THE ADDITIONAL 1MG ORDERED. REPOSITIONED FOR COMFORT WELL. CONTINUE POC
--- NOTE | 2019-01-12 02:40 | NUR ---
REASSESSMENT COMPLETE. RESP NONLABORED AT REST BUT WITH TURNING OR WHEN HE TALKS FOR VERY LONG HE BECOMES SOB. SEE ASSESSMENT FLOWSHEET
--- NOTE | 2019-01-12 03:00 | NUR ---
CHECKED IN ON PATIENT HE IS RESTING QUIETLY WITH EYES CLOSED BP DID DROP A BIT WITH PAIN PRN MED BUT STILL OK WILL CONTINUE TO MONITOR.
--- NOTE | 2019-01-12 04:00 | NUR ---
SHIFT INTAKE AND OUTPUT RECORDED. URINE 1700 FROM GALARZA BAG ON ICE INTO ORANGE 24 HOUR URINE LAB CONTAINER ON ICE WELL
--- NOTE | 2019-01-12 05:15 | NUR ---
ANSWERED PTS CALL LIGHT HE WANTS TO BLANKET PULLED OVER HIM AND REPOSITIONED IN BED. REPOSITIONED AND BLANKET ADJUSTED.
--- NOTE | 2019-01-12 05:30 | NUR ---
IGLESIA ROSA RENAL [place] GRINDER ROUNDING ON PTS
[2019-01-12 06:44] LABS: BASOPHILS 0.1 % (0-2); EOSINOPHILS 0.9 % (0-7); HEMATOCRIT 29.4 % (42.0-54.0); HEMOGLOBIN 9.7 g/dL (13.5-17.5); IMMATURE GRANULOCYTES 0.3 % (0-5); LYMPHOCYTES 13.2 % (15-50); MCH 29.6 pg (26.0-34.0); MCV 89.6 fL (80.0-100.0); MEAN PLATELET VOLUME 10.5 fL (7.4-10.4); MONOCYTES 12.4 % (2-11); NEUTROPHILS 73.1 % (40-80); RBC 3.28 10x6/uL (4.20-6.10); RDW 15.3 % (11.5-14.5); WBC 7.7 10x3/uL (4.8-10.8)
[2019-01-12 06:46] LABS: PLATELET COUNT 222 10x3/uL (130-400)
[2019-01-12 06:58] LABS: ANION GAP 10.8 mmol/L (8-16); CALCIUM 8.3 mg/dL (8.5-10.1); CARBON DIOXIDE 31.9 mmol/L (21.0-32.0); CREATININE - SERUM 1.7 mg/dL (0.6-1.3); POTASSIUM - SERUM 3.7 mmol/L (3.5-5.1)
--- NOTE | 2019-01-12 08:02 | NUR ---
Received patient. VSS. Assessment complete. Reposition for comfort.Up in bed eating breakfast. Cont with poc
--- NOTE | 2019-01-12 10:08 | NUR ---
Patient resting quietly. VSS. No changes in assessment. Cont with poc
--- NOTE | 2019-01-12 11:33 | NUR ---
Vs complete. pt resting. reposition for comfort . meds as ordered. cont with poc
--- NOTE | 2019-01-12 11:39 | NUR ---
Vs complete. Pt resting queitly. Reposition for comfort. Cont with poc
[2019-01-12 14:16] LABS: CREATININE - URINE 19.9 mg/dL (30-125)
--- NOTE | 2019-01-12 17:02 | NUR ---
Report given to Cristofer PEREZ. Pt transferred via bed. Repositioned and meal given.
--- NOTE | 2019-01-12 17:04 | NUR ---
TRANSFER FROM ICU BY BED. OREINTED TO ROOM. CALL LIGHT IN REACH. WILL CONT. PLAN OF CARE.
--- NOTE | 2019-01-12 20:00 | NUR ---
INITIAL ROUNDS AND ASSESSMENT COMPLETED. PT ALERT/ORIENTED. PIV TO ELLEN WITH DOBUTREX @ 5MCG/KG/MIN, RECALUCUTATED RATE TO BE 9ML/HR. SR/PACEMAKER PER TELEMETRY. NONLABORED RESPIRATIONS ON ROOM AIR. GALARZA PATENT TO BEDSIDE DRAIN BAG. ON ELIQUIS FOR DVT PROTOCOL. MONITOR AND CPOC.
--- NOTE | 2019-01-12 22:00 | NUR ---
SCHEDULED MEDS GIVEN. FSBS 155, NO SLIDING SCALE INSULIN GIVEN DUE TO PT HAVING FREQUENT LOW BLOOD SUGARS. PT READING A NOVEL. NO PAIN OR DISCOMFORT VOICED. MONITOR AN CPOC.
[2019-01-13 01:13] VITALS: BP 109/49
--- NOTE | 2019-01-13 01:41 | NUR ---
PT RESTING IN BED WITH EYES CLOSED. RESP EVEN/NONLABORED. NO DISTRESS. BED LOW, CALL LIGHT IN REACH. MONITOR AND CPOC.
[2019-01-13 04:59] LABS: BASOPHILS 0.1 % (0-2); EOSINOPHILS 1.1 % (0-7); HEMATOCRIT 33.8 % (42.0-54.0); HEMOGLOBIN 11.1 g/dL (13.5-17.5); IMMATURE GRANULOCYTES 0.1 % (0-5); LYMPHOCYTES 12.6 % (15-50); MCH 29.6 pg (26.0-34.0); MCHC 32.8 g/dL (31.0-37.0); MCV 90.1 fL (80.0-100.0); MEAN PLATELET VOLUME 11.4 fL (7.4-10.4); MONOCYTES 11.6 % (2-11); NEUTROPHILS 74.5 % (40-80); RBC 3.75 10x6/uL (4.20-6.10); RDW 15.4 % (11.5-14.5); WBC 7.2 10x3/uL (4.8-10.8)
[2019-01-13 05:02] LABS: PLATELET COUNT 132 10x3/uL (130-400)
[2019-01-13 05:09] LABS: ANION GAP 11.2 mmol/L (8-16); CALCIUM 9.1 mg/dL (8.5-10.1); CREATININE - SERUM 1.6 mg/dL (0.6-1.3); POTASSIUM - SERUM 4.2 mmol/L (3.5-5.1)
[2019-01-13 05:26] VITALS: BP 103/50
--- NOTE | 2019-01-13 07:15 | NUR ---
RECEIVED PT IN BED EYES CLOSED RESP UNLABORED SKIN W/D COLOR WNL NAD NOTED WILL COTINUE TO MONITOR
[2019-01-13 08:16] VITALS: BP 90/59
[2019-01-13 11:36] VITALS: BP 101/62
[2019-01-13 15:40] VITALS: BP 98/61
--- NOTE | 2019-01-13 16:33 | NUR ---
fsbs 103
--- NOTE | 2019-01-13 19:36 | NUR ---
RESUMING PATIENT CARE. PATIENT IS ALERT AND ORIENTED, RESTING COMFORTABLY IN BED. RESPIRATIONS ARE EVEN AND UNLABORED. NO S/S OF DISTRESS. NO C/O PAIN. NEEDS MET. CALL LIGHT WITHIN REACH. WILL CPOC.
[2019-01-13 20:00] VITALS: BP 91/38
[2019-01-14] VITALS (7 sets, daily range): BP systolic 88–98; BP diastolic 42–76
[2019-01-14 05:34] LABS: BASOPHILS 0.1 % (0-2); EOSINOPHILS 1.1 % (0-7); HEMATOCRIT 30.3 % (42.0-54.0); LYMPHOCYTES 17.4 % (15-50); MCH 29.6 pg (26.0-34.0); MCV 89.6 fL (80.0-100.0); MEAN PLATELET VOLUME 10.9 fL (7.4-10.4); MONOCYTES 13.2 % (2-11); NEUTROPHILS 68.2 % (40-80); RBC 3.38 10x6/uL (4.20-6.10); RDW 15.4 % (11.5-14.5); WBC 7.9 10x3/uL (4.8-10.8)
[2019-01-14 05:41] LABS: ANION GAP 8.2 mmol/L (8-16); CALCIUM 8.6 mg/dL (8.5-10.1); CARBON DIOXIDE 34.5 mmol/L (21.0-32.0); CREATININE - SERUM 1.5 mg/dL (0.6-1.3); POTASSIUM - SERUM 3.7 mmol/L (3.5-5.1)
[2019-01-14 05:42] LABS: PLATELET COUNT 210 10x3/uL (130-400)
--- NOTE | 2019-01-14 07:24 | NUR ---
ASSESSMENT DONE. DENIES NEEDS.
--- NOTE | 2019-01-14 12:22 | NUR ---
I have reviewed this patient and I concur with the Shift Assessment completed by the Licensed Practical Nurse today this shift.
--- NOTE | 2019-01-14 12:38 | NUR ---
Nutrition follow-up: Visited with pt during breakfast. Pt with very good appetite and ate 100% of breakfast. Pt states no c/o at this time. Diet: Renal ADA PO Intake 75-100% of meals Labs reviewed Wt: 137# Will offer nutritional supplements due to pt underweight. RDN following.
--- NOTE | 2019-01-14 16:57 | NUR ---
WITHOUT CHANGES OR DISTRESS NOTED AT THIS TIME. DENIES NEEDS.
--- NOTE | 2019-01-14 17:47 | NUR ---
GALARZA CATH DCD
--- NOTE | 2019-01-14 19:42 | NUR ---
RESUMING PATIENT CARE. PATIENT IS ALERT AND ORIENTED, RESTING COMFORTABLY. RESPIRATIONS ARE EVEN AND UNLABORED. NO S/S OF DISTRESS. NO C/O PAIN. NEEDS MET. CALL LIGHT WITHIN REACH. WILL CPOC.
[2019-01-15 00:30] VITALS: BP 100/50
[2019-01-15 04:30] VITALS: BP 87/42
[2019-01-15 05:47] LABS: BASOPHILS 0.2 % (0-2); EOSINOPHILS 1.1 % (0-7); HEMATOCRIT 32.9 % (42.0-54.0); HEMOGLOBIN 10.8 g/dL (13.5-17.5); IMMATURE GRANULOCYTES 0.2 % (0-5); LYMPHOCYTES 20.1 % (15-50); MCH 29.6 pg (26.0-34.0); MCHC 32.8 g/dL (31.0-37.0); MCV 90.1 fL (80.0-100.0); MEAN PLATELET VOLUME 11.5 fL (7.4-10.4); NEUTROPHILS 68.4 % (40-80); RBC 3.65 10x6/uL (4.20-6.10); RDW 15.5 % (11.5-14.5); WBC 9.2 10x3/uL (4.8-10.8)
[2019-01-15 05:59] LABS: PLATELET COUNT 111 10x3/uL (130-400)
[2019-01-15 06:31] LABS: ANION GAP 12.8 mmol/L (8-16); CALCIUM 8.9 mg/dL (8.5-10.1); CARBON DIOXIDE 30.6 mmol/L (21.0-32.0); CREATININE - SERUM 1.7 mg/dL (0.6-1.3); MAGNESIUM - SERUM 2.4 mg/dL (1.8-2.4); POTASSIUM - SERUM 3.4 mmol/L (3.5-5.1)
--- NOTE | 2019-01-15 07:15 | NUR ---
RECEIVED PT IN BED AAOX4 DENIES ANY NEEDS OR DISCOMFORT AT THIS TIME RESP UNLABORED SKIN W/D COLOR WNL WILL CONTINUE TO MONITOR
[2019-01-15 07:56] VITALS: BP 116/51
--- NOTE | 2019-01-15 10:57 | NUR ---
RESTING QUIETLY SITTING IN CHAIR DENIES ANY NEEDS OR DISCOMFORT AT THIS TIME
[2019-01-15 11:57] VITALS: BP 85/45
--- NOTE | 2019-01-15 15:02 | NUR ---
Nutrition follow-up: Visited pt during rounds and helped pull pt up in bed. Pt with severe wasting of all extremeties and also with severe temporal wasting. PO intake has declined over the last 24 hours. Pt reports being too weak to push himself up in bed. 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 Pt has lost weight but in not sure how much over the last 6 months. Will continue to encourage increased po intake and honor food preferences. Will also continue to offer nutritional supplements. Pt may benefit from an appetite stimulant RDN following.
[2019-01-15 16:33] VITALS: BP 92/54
--- NOTE | 2019-01-15 16:50 | NUR ---
FSBS 177 REFUSED COVERAGE
--- NOTE | 2019-01-15 16:59 | MORECARE ---
CASE MANAGEMENT DISCHARGE SUMMARY PATIENT: ISADORA HERNANDEZ UNIT: [id number] ADM DATE: 01/10/19 AGE: 88 : [birth year] SEX: M ROOM/BED: D.2115 AUTHOR: RANDALLDOC PHYSICIAN: REFERRING PHYSICIAN: ABBI JEAN BAPTISTE MD DATE OF SERVICE: 01/15/19 Discharge Plan Patient Name: ISADORA HERNANDEZ Facility: [facility]:[place] : 1930 Planned Disposition: Home with Home Health Anticipated Discharge Date: Discharge Date: Expected LOS: Initial Reviewer: [email or web address] Initial Review Date: 01/15/2019 Generated: 01/15/19 5:59 pm DCPIA - Discharge Planning Initial Assessment Updated by THU: Oliver cEhevarria on 01/15/19 4:56 pm * Is the patient Alert and Oriented? Yes * How many steps to enter\exit or inside your home? * PCP DR[facility] CALDWELL IN [place] * Pharmacy [facility] [place] * Preadmission Environment Home with Family * ADLs Independent * Equipment Rolling Walker * Other Equipment NO MEDICAL EQUIPMENT PROVIDER PREFERENCE * List name and contact numbers for known caregivers / representatives who currently or will assist patient after discharge: DANK HERNANDEZ, SPOUSE, BRITTON BAR, STEP SON, CHECO BAR, DTR, * Verbal permission to speak to the caregivers and representatives has been obtained from the patient. Yes * Community resources currently utilized Home Health * Please name any agencies selected above. [facility] - [facility] AND PHYSICAL THERAPY * Additional services required to return to the preadmission environment? No * Can the patient safely return to the preadmission environment? Yes * Has this patient been hospitalized within the prior 30 days at any hospital? No External Providers External Provider: [facility] Next Contact Date: 01/15/2019 Service Request Date: Service Type: Resolution: Reviewer: Comments: Coverage Notice Reviewer: [id number] Gloria Echevarria Notice Issued Date-Time: 01/15/2019 9:20 Notice Type: Patient Choice Letter Notice Delivered To: Patient Relationship to Patient: Rn Dialysis Name: Delivery Method: HAND - Hand Delivered Doretha Days: Prior Verbal Notification: Recipient Understood Notice: Yes Recipient Signature: Yes Med Rec Note Co-signed by Attending: Coverage Notice Comment: KOBE MYERS Reviewer: [email or web address] Gloria Echevarria Notice Issued Date-Time: 01/15/2019 9:20 Notice Type: IM Discharge Notice Notice Delivered To: Patient Relationship to Patient: Rn Dialysis Name: Delivery Method: HAND - Hand Delivered Doretha Days: Prior Verbal Notification: Recipient Understood Notice: Yes Recipient Signature: Yes Med Rec Note Co-signed by Attending: Coverage Notice Comment: Patient Name: ISADORA HERNANDEZ Page [phone] at 1659 All edits/amendments must be made on the electronic document DICTATION DATE: 01/15/191657 QUALITY INTERNSHIP: JOHNNIE 01/15/191657 RPT#: [id number] DC DATE: STATUS: ADM IN [facility] [address] [place] [address] END OF REPORT
--- NOTE | 2019-01-15 17:09 | MORECARE ---
CASE MANAGEMENT DISCHARGE SUMMARY PATIENT: ISADORA HERNANDEZ UNIT: [id number] ADM DATE: 01/10/19 AGE: 88 : [birth year] SEX: M ROOM/BED: D.6885 AUTHOR: RANDALL,DOC PHYSICIAN: REFERRING PHYSICIAN: ABBI JEAN BAPTISTE MD DATE OF SERVICE: 01/15/19 Discharge Plan Patient Name: ISADORA HERNANDEZ Facility: [facility]:[place] : 1930 Planned Disposition: Home with Home Health Anticipated Discharge Date: Discharge Date: Expected LOS: Initial Reviewer: [email or web address] Initial Review Date: 01/15/2019 Generated: 01/15/19 6:08 pm Comments DCP- Discharge Planning Updated by [email or web address]: Oliver Echevarria on 01/15/19 3:[address] Patient Name: ISADORA HERNANDEZ Admission Status: ER Accout number: [id number] Admission Date: 01-10-2019 : 1930 Admission Diagnosis:SHORTNESS OF BREATH Attending: ABBI JEAN BAPTISTE Current LOS: 5 Anticipated DC Date: Planned Disposition: Home with Home Health Primary Insurance: MEDICARE A & B PLANNED EXTERNAL PROVIDER: [facility] Discharge Planning Comments: CM RECEIVED NOTE INDICATING PT NEEDS A WALKER FOR HOME USE AND [facility]. CM MET WITH PT IN ROOM TO DISCUSS DISCHARGE NEEDS AND PLANNING. PT REPORTS LIVING AT HOME WITH SPOUSE AND STEP SON. PT REPORTS BEING INDEPENDENT IN HIS CARE. PT HAS ROLLING WALKER WITH NO MEDICAL EQUIPMENT PROVIDER. PT HAS [facility] FOR WHOM HIS DAUGHTER WORKS A NURSE. CM DISCUSSED AVAILABILITY OF HOME HEALTH, REHAB SERVICES AND MEDICAL EQUIPMENT. PT REPORTS ALREADY HAVING A WALKER AT HOME AND WANTS HOME HEALTH RESUMED HE HAS NURSING AND THERAPY AT HOME. CHOICE LETTER SIGNED FOR [facility]. STEP SON OR DAUGHTER TO TRANSPORT HOME AT DISCHARGE. IMPORTANT MESSAGE FROM MEDICARE PROVIDED AND EXPLAINED. FOR DISCHARGE FAX ORDER AND DISCHARGE INFORMATION TO [facility] OFFICE AT [phone], CALL AND NOTIFY [facility] OF DISCHARGE HOME AT [phone]. Mathematical Scientist: Oliver Echevarria DCPIA - Discharge Planning Initial Assessment Updated by [email or web address]: Oliver Echevarria on 01/15/19 4:56 pm * Is the patient Alert and Oriented? Yes * How many steps to enter\exit or inside your home? * PCP DR. CALDWELL IN [place] * Pharmacy [facility] IN [place] * Preadmission Environment Home with Family * ADLs Independent * Equipment Rolling Walker * Other Equipment NO MEDICAL EQUIPMENT PROVIDER PREFERENCE * List name and contact numbers for known caregivers / representatives who currently or will assist patient after discharge: DANK HERNANDEZ, SPOUSE, BRITTON DINERO, STEP SON, CHECO DINERO, DTR, * Verbal permission to speak to the caregivers and representatives has been obtained from the patient. Yes * Community resources currently utilized Home Health * Please name any agencies selected above. [facility] * Additional services required to return to the preadmission environment? No * Can the patient safely return to the preadmission environment? Yes * Has this patient been hospitalized within the prior 30 days at any hospital? No Coverage Notice Reviewer: THU Echevarria Notice Issued Date-Time: 01/15/2019 9:20 Notice Type: Patient Choice Letter Notice Delivered To: Patient Relationship to Patient: Buff Wheel Fabricator Name: Delivery Method: HAND - Hand Delivered Doretha Days: Prior Verbal Notification: Recipient Understood Notice: Yes Recipient Signature: Yes Med Rec Note Co-signed by Attending: Coverage Notice Comment: [facility] Reviewer: [id number] Echevarria Notice Issued Date-Time: 01/15/2019 9:20 Notice Type: IM Discharge Notice Notice Delivered To: Patient Relationship to Patient: Buff Wheel Fabricator Name: Delivery Method: HAND - Hand Delivered Doretha Days: Prior Verbal Notification: Recipient Understood Notice: Yes Recipient Signature: Yes Med Rec Note Co-signed by Attending: Coverage Notice Comment: Last DP export: 01/15/19 3:59 p Patient Name: ISADORA HERNANDEZ Page [phone] at 1708 All edits/amendments must be made on the electronic document DICTATION DATE: 01/15/191707 PESTICIDE APPLICATOR: JOHNNIE 01/15/191707 RPT#: [id number] DC DATE: STATUS: ADM IN [facility] [address] [place] [address] END OF REPORT
--- NOTE | 2019-01-15 17:18 | NUR ---
NOTIFIED REBA NOLAN CARD DOFFER OF PT PASSING FEW HARD BALLS OF FECES IN TOILET AFTER DULCOLAX SUPPOSITORY AND SOME DROPS OF BRIGHT RED BLOOD NEW ORDERS RECEIVED
--- NOTE | 2019-01-15 19:17 | NUR ---
RESUMING PATIENT CARE. PATIENT IS ALERT AND ORIENTED. SITTING IN CHAIR. RESPIRATIONS ARE EVEN AND UNLABORED. NO S/S OF DISTRESS. NO C/O PAIN. NEEDS MET. CALL LIGHT WITHIN REACH. WILL CPOC.
[2019-01-15 20:00] VITALS: BP 82/45
--- NOTE | 2019-01-15 21:58 | NUR ---
BLOOD PRESSURE MEDICATION HELD. PATIENT BP 89/47.
--- NOTE | 2019-01-15 22:38 | NUR ---
PATIENT SITTING COMFORTABLY IN RECLINER. PATIENT ASKED IF HE WAS READY TO GET BACK INTO BED. HE STATED NO. PATIENT RESPIRATIONS ARE EVEN AND UNLABORED. NO S/S OF DISTRESS. NO C/O PAIN. DENIES NEEDS. CALL LIGHT WITHIN REACH. WILL CPOC.
[2019-01-16] VITALS: BP 90/50
[2019-01-16 04:00] VITALS: BP 98/48
[2019-01-16 05:25] LABS: BASOPHILS 0.1 % (0-2); EOSINOPHILS 0.8 % (0-7); HEMATOCRIT 30.1 % (42.0-54.0); HEMOGLOBIN 10.1 g/dL (13.5-17.5); IMMATURE GRANULOCYTES 0.3 % (0-5); LYMPHOCYTES 15.8 % (15-50); MCH 29.8 pg (26.0-34.0); MCHC 33.6 g/dL (31.0-37.0); MCV 88.8 fL (80.0-100.0); MEAN PLATELET VOLUME 10.7 fL (7.4-10.4); MONOCYTES 7.5 % (2-11); NEUTROPHILS 75.5 % (40-80); PLATELET COUNT 101 10x3/uL (130-400); RBC 3.39 10x6/uL (4.20-6.10); RDW 15.2 % (11.5-14.5)
[2019-01-16 05:44] LABS: ANION GAP 11.1 mmol/L (8-16); CALCIUM 8.7 mg/dL (8.5-10.1); CARBON DIOXIDE 31.5 mmol/L (21.0-32.0); CREATININE - SERUM 1.7 mg/dL (0.6-1.3); POTASSIUM - SERUM 3.6 mmol/L (3.5-5.1)
--- NOTE | 2019-01-16 06:15 | NUR ---
PATIENT DID NOT HAVE A BOWEL MOVEMENT LAST NOT. PATIENT WAS OFFERED THE ENEMA THIS AM. PATIENT STATED HE WAS HAVING PAIN IN HIS LEGS AND WOULD LIKE THE ENEMA DONE LATER.
[2019-01-16 08:38] VITALS: BP 95/54
--- NOTE | 2019-01-16 10:50 | NUR ---
AMBULATES HALLWAY WITH PT ASSIST.
[2019-01-16 11:39] VITALS: BP 94/44
--- NOTE | 2019-01-16 14:38 | NUR ---
REPOSITIONED SITTINE POSITION ON SIDE OF BED. TYLENOL 650 MG GIVEN FOR LEG PAIN. WILL MONITOR.
[2019-01-16 15:55] VITALS: BP 95/50
--- NOTE | 2019-01-16 18:28 | NUR ---
LRGE BM NOTED.
--- NOTE | 2019-01-16 19:37 | NUR ---
RESUMING PATIENT CARE. PATIENT IS RESTING COMFORTABLY IN BED. RESPIRATIONS ARE EVEN AND UNLABORED. NO S/S OF DISTRESS. CALL LIGHT WITHIN REACH. WILL CPOC.
[2019-01-16 20:00] VITALS: BP 99/42
[2019-01-17 00:30] VITALS: BP 96/37
[2019-01-17 04:23] LABS: BASOPHILS 0.1 % (0-2); HEMATOCRIT 29.2 % (42.0-54.0); HEMOGLOBIN 9.5 g/dL (13.5-17.5); IMMATURE GRANULOCYTES 0.1 % (0-5); LYMPHOCYTES 12.4 % (15-50); MCH 29.3 pg (26.0-34.0); MCHC 32.5 g/dL (31.0-37.0); MCV 90.1 fL (80.0-100.0); MEAN PLATELET VOLUME 11.8 fL (7.4-10.4); NEUTROPHILS 76.4 % (40-80); RBC 3.24 10x6/uL (4.20-6.10); RDW 15.6 % (11.5-14.5); WBC 8.8 10x3/uL (4.8-10.8)
[2019-01-17 04:29] LABS: ANION GAP 10.2 mmol/L (8-16); CALCIUM 8.4 mg/dL (8.5-10.1); CARBON DIOXIDE 29.3 mmol/L (21.0-32.0); CREATININE - SERUM 1.8 mg/dL (0.6-1.3); POTASSIUM - SERUM 3.5 mmol/L (3.5-5.1)
[2019-01-17 04:30] LABS: PLATELET COUNT 195 10x3/uL (130-400)
[2019-01-17 05:30] VITALS: BP 96/43
[2019-01-17 08:52] VITALS: BP 102/60
--- NOTE | 2019-01-17 09:42 | NUR ---
AMBULATING HALLWAY WITH PT ASSIST. WILL CONT. PLAN OF CARE.
--- NOTE | 2019-01-17 10:25 | NUR ---
SODIUM LEVEL CALLED TO TINO COOK WILL MONITOR NEW ORDERS.
--- NOTE | 2019-01-17 11:25 | NUR ---
16 KYRGYZ GALARZA CDATH INSERTED ORDERED FOR STRICT I&O. WILL MONITOR.
--- NOTE | 2019-01-17 11:27 | CN ---
PATIENT NAME:ISADORA HERNANDEZ MEDICAL RECORD: [id number] : [birth year] LOCATION:D. D.2115 ADMIT DATE: 01/10/19 ACCOUNT: [id number] CONSULTING PHYSICIAN: SIMON TOBAR MD REFERRING PHYSICIAN: ABBI JEAN BAPTISTE MD DATE OF CONSULTATION: 01/10/2019 CARDIOLOGY CONSULT ADMITTING DIAGNOSES: 1. Congestive heart failure, chronic systolic dysfunction. 2. Dilated cardiomyopathy. 3. Sick sinus syndrome, status post pacemaker. 4. Paroxysmal atrial fibrillation. 5. Hypertension. 6. Hyperlipidemia. HISTORY OF PRESENT ILLNESS: This is a gentleman followed by another liner helper, who presents with shortness of breath, dyspnea on exertion, heart failure symptomatology. He has a history of a dilated cardiomyopathy, ejection fraction in the 10% to 15% range. He is not having any chest pain or chest discomfort compatible with ischemia. Troponin is normal. EKG is with no ST-T changes. His chest x-ray is compatible with pulmonary edema, congestive heart failure. At home, his medications are metoprolol, Entresto, Lipitor, aspirin, and Eliquis. Recently he has been treated for bronchitis with Zithromax and Omnicef as well. His shortness of breath increased. He presented to [facility]. He is now transferred here. PHYSICAL EXAMINATION: GENERAL APPEARANCE: Well-nourished, well-developed, appears stated age. Level of distress, comfortable. PSYCHIATRIC: Mental status, alert, normal affect. Orientation, oriented to time, place and person. EYES: Lids and conjunctiva, noninjected. No discharge, no pallor. ENT: Lips, teeth, gums, normal dentition. Oropharynx, no cyanosis, no pallor. NECK: Carotid arteries, bilateral normal upstroke, no bruits, no thrills. JUGULAR VEINS: No jugular venous pressure or distention. CERVICAL LYMPH NODES: Nontender, nonenlarged. THYROID: Not enlarged. Nontender. No nodules. LUNGS: Respiratory effort, unlabored. CHEST: Normal curvature. No thoracic deformity. No chest wall tenderness. Percussion, resonant. Auscultation, clear. No wheezes, no rales, no rhonchi. CARDIOVASCULAR: Precordial exam, nondisplaced. No heaves or pericardial thrills. Rate and rhythm, regular. Heart sounds, normal S1, normal S2. No S3, no gallop, no rub. Systolic murmur, not heard. Diastolic murmur, not heard. EXTREMITIES: No cyanosis, no edema. Peripheral pulses, full and equal in all extremities, except as noted. No bruits appreciated. ABDOMEN: Soft, nondistended. Normal aorta. No bruit. Nontender. No masses. Liver, nontender, no hepatomegaly. Spleen, nontender, no splenomegaly. MUSCULOSKELETAL: No joint tenderness. No joint swelling. No erythema. NEUROLOGICAL: Normal gait, normal strength, normal tone. SKIN: Warm and dry. OVERALL IMPRESSION: Congestive heart failure. He feels much better after his initial diuresis. We will continue diuresis. We will also add dobutamine to CONSULT REPORT [id number] ISADORA HERNANDEZ his medical regimen to increase his cardiac output and clear the congestive heart failure, especially in light of his renal dysfunction as well perfuse his kidneys better. Further care depends upon the results with the increased dobutamine and continue the Lasix. No other cardiac workup or treatment is necessary. He just had an echocardiogram, which revealed ejection fraction in the 10% to 15% range. No other workup is necessary. TRANSINT:[id number] Voice Confirmation ID: [id number] DOCUMENT ID: [id number] SIMON TOBAR MD at 1127 CC: [id number] DICTATION DATE: 01/10/19 1307 WELDER APPRENTICE ARC: 01/10/19 1511 ADM IN [place] [address] [place] [address]
--- NOTE | 2019-01-17 12:21 | NUR ---
MANUAL B/P 88/52 MANUAL. WILL CONT. TO MONITOR.
[2019-01-17 12:29] VITALS: BP 103/36
[2019-01-17 18:00] VITALS: BP 84/55
--- NOTE | 2019-01-17 19:01 | NUR ---
RESUMING PATIENT CARE. PATIENT IS ALERT AND ORIENTED, SITTING UP ON SIDE OF BED. RESPIRATIONS ARE EVEN AND UNLABORED. NO S/S OF DISTRESS. NO C/O PAIN. NEEDS MET. CALL LIGHT WITHIN REACH. WILL CPOC.
[2019-01-17 20:00] VITALS: BP 92/34
--- NOTE | 2019-01-17 22:23 | NUR ---
PATIENT RESTING COMFORTABLY IN BED. PATIENT RESPIRATIONS ARE EVEN AND UNLABORED. NO S/S OF DISTRESS. NO C/O PAIN. CALL IGHT WITHIN REACH. WILL CPOC.
[2019-01-18 00:30] VITALS: BP 107/35
--- NOTE | 2019-01-18 01:48 | NUR ---
assuming care of pt, introduced self. 300 mls of light xavier output emptied from jarvis. bed in low position. call light in reach. will ctm.
[2019-01-18 03:35] LABS: BASOPHILS 0.2 % (0-2); EOSINOPHILS 1.8 % (0-7); HEMATOCRIT 27.2 % (42.0-54.0); IMMATURE GRANULOCYTES 0.2 % (0-5); LYMPHOCYTES 17.7 % (15-50); MCH 29.7 pg (26.0-34.0); MCHC 33.1 g/dL (31.0-37.0); MCV 89.8 fL (80.0-100.0); MONOCYTES 10.8 % (2-11); NEUTROPHILS 69.3 % (40-80); PLATELET COUNT 206 10x3/uL (130-400); RBC 3.03 10x6/uL (4.20-6.10); RDW 15.7 % (11.5-14.5); WBC 8.8 10x3/uL (4.8-10.8)
[2019-01-18 03:52] LABS: ANION GAP 11.3 mmol/L (8-16); CALCIUM 8.6 mg/dL (8.5-10.1); CARBON DIOXIDE 29.3 mmol/L (21.0-32.0); POTASSIUM - SERUM 3.6 mmol/L (3.5-5.1)
--- NOTE | 2019-01-18 04:17 | NUR ---
PT SITTING UP IN BED WITH EYES OPEN, RR EVEN AND UNLABORED. BED IN LOW POSITION. NO S/S OF DISTRESS NOTED. 71 PACED ON TELEMETRY. CALL LIGHT IN REACH. WILL CTM.
[2019-01-18 04:30] VITALS: BP 97/30
--- NOTE | 2019-01-18 07:15 | NUR ---
RECEIVED PT AAOX4 RESP UNLABORED RESP UNLABORED SKIN W/D COLOR WNL PT DENIES ANY NEEDS OR DISCOMFORT F/C PATENT CLEAR YELLOW URINE IN BAG
[2019-01-18 09:33] VITALS: BP 88/46
--- NOTE | 2019-01-18 12:07 | NUR ---
FSBS 87
[2019-01-18 12:13] LABS: BILIRUBIN - DIRECT 0.29 mg/dL (0.00-0.30); BILIRUBIN - INDIRECT 0.5 mg/dL (0.00-1.00); BILIRUBIN - TOTAL 0.79 mg/dL (0.2-1.3); PROTEIN - SERUM 6.9 g/dL (6.4-8.2)
[2019-01-18 13:00] VITALS: BP 70/40
[2019-01-18 15:30] VITALS: BP 92/53
--- NOTE | 2019-01-18 17:25 | NUR ---
FSBS 80 EATING SUPPER AT THIS TIME
--- NOTE | 2019-01-18 19:10 | NUR ---
RECEIVED REPORT, WILL ASSUME CARE OF PT, PT IS SLEEPING, NO DISTRESS NOTICED AT THIS TIME, BED IS LOW, SRX2, CALL LIGHT IN REACH, WILL CONTINUE PLAN OF CARE
[2019-01-18 20:00] VITALS: BP 101/59
[2019-01-19 00:30] VITALS: BP 96/41
--- NOTE | 2019-01-19 03:38 | NUR ---
I have reviewed this patient and I concur with the Shift Assessment completed by the Licensed Practical Nurse today this shift.
[2019-01-19 05:30] VITALS: BP 122/47
[2019-01-19 06:02] LABS: BASOPHILS 0.5 % (0-2); EOSINOPHILS 2.4 % (0-7); HEMATOCRIT 26.3 % (42.0-54.0); HEMOGLOBIN 8.8 g/dL (13.5-17.5); IMMATURE GRANULOCYTES 0.3 % (0-5); LYMPHOCYTES 18.9 % (15-50); MCH 29.8 pg (26.0-34.0); MCHC 33.5 g/dL (31.0-37.0); MCV 89.2 fL (80.0-100.0); MEAN PLATELET VOLUME 9.6 fL (7.4-10.4); MONOCYTES 11.9 % (2-11); PLATELET COUNT 237 10x3/uL (130-400); RBC 2.95 10x6/uL (4.20-6.10); RDW 15.7 % (11.5-14.5); WBC 6.7 10x3/uL (4.8-10.8)
[2019-01-19 06:21] LABS: ANION GAP 11.5 mmol/L (8-16); CALCIUM 8.1 mg/dL (8.5-10.1); CARBON DIOXIDE 29.7 mmol/L (21.0-32.0); CREATININE - SERUM 1.9 mg/dL (0.6-1.3); POTASSIUM - SERUM 3.2 mmol/L (3.5-5.1)
--- NOTE | 2019-01-19 07:30 | NUR ---
RECEIVED PT IN BED AAOX4 [place] RESP UNLABORED SKIN W/D COLOR WNL DENIES ANY NEEDS OR DISCOMFORT WILL CONTINUE TO MONITOR
[2019-01-19 08:14] VITALS: BP 86/36
--- NOTE | 2019-01-19 11:45 | NUR ---
FSBS 115
[2019-01-19 13:06] VITALS: BP 102/47
--- NOTE | 2019-01-19 17:04 | NUR ---
FSBS 124
--- NOTE | 2019-01-19 19:35 | NUR ---
RECEIVED REPORT, WILL ASSUME CARE OF PT, PT IS SITTING UP IN CHAIR, DENIES ANY NEEDS, CALL LIGHT IN REACH, WILL CONTINUE PLAN OF CARE
[2019-01-19 20:00] VITALS: BP 91/46
[2019-01-20 00:27] VITALS: BP 89/49
--- NOTE | 2019-01-20 04:00 | NUR ---
I have reviewed this patient and I concur with the Shift Assessment completed by the Licensed Practical Nurse today this shift.
[2019-01-20 04:25] VITALS: BP 83/46
[2019-01-20 05:21] LABS: BASOPHILS 0.5 % (0-2); EOSINOPHILS 2.7 % (0-7); HEMATOCRIT 26.5 % (42.0-54.0); HEMOGLOBIN 8.7 g/dL (13.5-17.5); IMMATURE GRANULOCYTES 0.2 % (0-5); LYMPHOCYTES 20.6 % (15-50); MCH 29.3 pg (26.0-34.0); MCHC 32.8 g/dL (31.0-37.0); MCV 89.2 fL (80.0-100.0); MEAN PLATELET VOLUME 10.9 fL (7.4-10.4); MONOCYTES 10.9 % (2-11); NEUTROPHILS 65.1 % (40-80); RBC 2.97 10x6/uL (4.20-6.10); RDW 15.8 % (11.5-14.5); WBC 6.3 10x3/uL (4.8-10.8)
[2019-01-20 05:27] LABS: PLATELET COUNT 161 10x3/uL (130-400)
[2019-01-20 05:32] LABS: ANION GAP 9.8 mmol/L (8-16); CALCIUM 8.2 mg/dL (8.5-10.1); CARBON DIOXIDE 30.8 mmol/L (21.0-32.0); CREATININE - SERUM 1.9 mg/dL (0.6-1.3); POTASSIUM - SERUM 3.6 mmol/L (3.5-5.1)
--- NOTE | 2019-01-20 07:18 | NUR ---
ROUNDING DONE WITH PATIENT BEING ASSISTED UP IN BED X 2 ASSIST. PATIENT IS DNR CODE STATUS. LEFT PACEMAKER/DEFIB SEEN TO CHEST. ON HEART MONITOR SHOWING PACED, HR 69. ON ROOM AIR. LEFT FA PIV SEEN WITH SALINE LOCK, ORANGE SWAB CAP IN PLACE. ON EP, K+ 3.6, NO COVERAGE FOR ORAL SUPPLEMENTS. BED ALARM IS ON AND SET. GALARZA CATH PATENT WITH YELLOW URINE.
[2019-01-20 08:19] VITALS: BP 87/39
[2019-01-20 11:33] VITALS: BP 86/47
--- NOTE | 2019-01-20 13:08 | NUR ---
PATIENT CLEANED FROM INCONT. OF SMALL STOOL. STAGE 2 ( 1 CM X 1 CM ) SEEN TO COCCYX. MEPILEX APPLIED AND DATED. CLEAN LINEN DONE. BLAZE MAT ALARM ON.
--- NOTE | 2019-01-20 13:36 | NUR ---
Nutrition follow-up: Diet: Renal ADA PO intake 50-75% of meals labs reviewed No new wt to assess +BM Will continue to provide food choices and honor food preferences. RDN following.
--- NOTE | 2019-01-20 15:05 | NUR ---
SITTING ON SIDE OF BED, DENIES NEEDS. SWINGING LEGS. BED ALARM AND BLAZE ALARM ON.
[2019-01-20 16:00] VITALS: BP 86/46
--- NOTE | 2019-01-20 19:24 | NUR ---
RESUMING PATIENT CARE. PATIENT IS ALERT AND ORIENTED, SITTING UP ON SIDE OF BED. BLAZE SENA ENABLED AND FUNCTIONING. RESPIRATIONS ARE EVEN AND UNLABORED. NEEDS MET. NO S/S OF DISTRESS. NO C/O PAIN. CALL LIGHT WITHIN REACH. WILL CPOC.
[2019-01-20 20:00] VITALS: BP 82/43
[2019-01-21 04:00] VITALS: BP 152/49
[2019-01-21 04:56] LABS: HEMATOCRIT 27.4 % (42.0-54.0); HEMOGLOBIN 9.2 g/dL (13.5-17.5); MCHC 33.6 g/dL (31.0-37.0); MCV 89.3 fL (80.0-100.0); MEAN PLATELET VOLUME 12.6 fL (7.4-10.4); PLATELET COUNT 167 10x3/uL (130-400); RBC 3.07 10x6/uL (4.20-6.10)
[2019-01-21 04:58] LABS: ANION GAP 10.2 mmol/L (8-16); CALCIUM 8.2 mg/dL (8.5-10.1); CARBON DIOXIDE 30.8 mmol/L (21.0-32.0); CREATININE - SERUM 1.8 mg/dL (0.6-1.3)
[2019-01-21 05:17] LABS: EOSINOPHILS 8 % (0-7); LYMPHOCYTES 26 % (15-50); MONOCYTES 10 % (2-11); NEUTROPHILS 56 % (40-80); PLATELET ESTIMATE NORMAL; PLATELET MORPHOLOGY PLT CLUMPS PRESENT
--- NOTE | 2019-01-21 07:35 | NUR ---
ROUNDING DONE WITH PATIENT SITTING ON SIDE OF BED WITH NO NEEDS VOICED. ON ROOM AIR. LEFT PACER/DEFIB SEEN, ON HEART MONITOR SHOWING PACED, HR 71. LEFT FA PIV SEEN WITH SALINE LOCK, ORANGE SWAB CAP IN USE. GALARZA CATH PATENT SEEN WITH CONCENTRATED URINE. BLAZE MAT/BED ALARM ON.
[2019-01-21 07:58] VITALS: BP 81/43
[2019-01-21 12:15] VITALS: BP 87/37
--- NOTE | 2019-01-21 12:36 | NUR ---
PER AUG ON MONITORS PATIENT IS GOING INTO VTACH, RATE AT 148-156. PATIENT IN [facility] FOR APPRX 3-4 MIN. VSS THIS AM ALSO WITH B/P 89/33. PAGE INTO DR CARUSO AFTER SPEAKING WITH ERIC CAMACHO APN. AWAITING CALL BACK.
--- NOTE | 2019-01-21 13:01 | NUR ---
MERYL FROM [facility] TO CALL FOR DR CARUSO. INFORMATION IS RELAYED TO MERYL.
[2019-01-21 16:10] VITALS: BP 83/41
--- NOTE | 2019-01-21 18:24 | NUR ---
PATIENT SITTING ON SIDE OF BED SLEEPING. APPROX 2 MIN RUN OF V TACH AGAIN PER CUSTOMER RELATIONS ADVISOR. PATIENT AROUSED, STATES SLEEPY.
--- NOTE | 2019-01-21 19:52 | NUR ---
RESUMING PATIENT CARE. PATIENT IS ALERT AND ORIENTED, RESTING COMFORTABLY IN BED. RESPIRATIONS ARE EVEN AND UNLABORED. NO S/S OF DISTRESS. NO C/O PAIN. CALL LIGHT WITHIN REACH, WILL CPOC.
[2019-01-21 21:24] VITALS: BP 82/48
[2019-01-22] VITALS: BP 92/51
[2019-01-22 04:00] VITALS: BP 94/57
[2019-01-22 04:45] LABS: BASOPHILS 0.5 % (0-2); EOSINOPHILS 2.7 % (0-7); HEMATOCRIT 26.3 % (42.0-54.0); HEMOGLOBIN 8.6 g/dL (13.5-17.5); IMMATURE GRANULOCYTES 0.2 % (0-5); LYMPHOCYTES 22.8 % (15-50); MCH 29.6 pg (26.0-34.0); MCHC 32.7 g/dL (31.0-37.0); MCV 90.4 fL (80.0-100.0); MEAN PLATELET VOLUME 11.4 fL (7.4-10.4); MONOCYTES 11.3 % (2-11); NEUTROPHILS 62.5 % (40-80); RBC 2.91 10x6/uL (4.20-6.10); WBC 6.3 10x3/uL (4.8-10.8)
[2019-01-22 04:56] LABS: PLATELET COUNT 106 10x3/uL (130-400)
[2019-01-22 05:02] LABS: ANION GAP 10.1 mmol/L (8-16); CALCIUM 8.5 mg/dL (8.5-10.1); CARBON DIOXIDE 30.7 mmol/L (21.0-32.0); CREATININE - SERUM 1.6 mg/dL (0.6-1.3); POTASSIUM - SERUM 3.8 mmol/L (3.5-5.1)
[2019-01-22 07:56] VITALS: BP 102/40
--- NOTE | 2019-01-22 08:08 | NUR ---
AM ROUNDS COMPLETED. INTRODUCED MYSELF TO PT PRIMARY RN FOR TODAYS SHIFT. PT IS A&O SITTING UP ON EDGE OF BED DRINKING HIS COFFEE. PT STATES HE HAD A GOOD NIGHT BUT WOULD LIKE TO GO HOME SOON. WILL DISCUSS WITH PRIMARY. SHIFT ASSESSMENT COMPLETED. PTS RR ARE NONLABORED ON RA AND CTA THROUGHOUT ALL LOBES. S1S2 HEART SOUNDS NOTED. PT RUNNING SINUS PACED ON TELEMETRY MONITER PER MONITER [employer] AND HAS A PACEMAKER TO THE LEFT OF HIS CHEST. PT HAS A GALARZA BUT WAS SUPPOSED TO START BLADDER TRAINING AND HAVE IT REMOVED. WILL REMOVE TODAY ITS NO LONGER NEEDED. NEPHROLOGY NOTES INDICATE 24HR URINE NEEDED IS WHY GALARZA WAS PLACED HOWEVER THAT WAS RESULTED ON THE December AND NO NEW ORDERS FOR ADDITIONAL URINE COLLECTION. PT DENIES ANY CURRENT PAIN OR NEEDS AT THIS TIME. CL IN REACH, BED IN LOWEST, SIDE RAILS X2. WILL CTM.
--- NOTE | 2019-01-22 12:11 | MORECARE ---
CASE MANAGEMENT DISCHARGE SUMMARY PATIENT: ISADORA HERNANDEZ UNIT: [id number] ADM DATE: 01/10/19 AGE: 88 : [birth year] SEX: M ROOM/BED: D.2115 AUTHOR: RANDALL,DOC PHYSICIAN: REFERRING PHYSICIAN: ABBI JEAN BAPTISTE MD DATE OF SERVICE: 01/22/19 Discharge Plan Patient Name: ISADORA HERNANDEZ Facility: [facility]:[place] : 1930 Planned Disposition: Home with Home Health Anticipated Discharge Date: 01/22/19 Discharge Date: Expected LOS: 12 Initial Reviewer: [email or web address] Initial Review Date: 01/15/2019 Generated: 01/22/19 1:11 pm DCP- Discharge Planning Updated by [id number]: Oliver Echevarria on 01/15/19 3:[address] Patient Name: ISADORA HERNANDEZ Admission Status: ER Accout number: [id number] Admission Date: 01-10-2019 : 1930 Admission Diagnosis:SHORTNESS OF BREATH Attending: ABBI JEAN BAPTISTE Current LOS: 5 Anticipated DC Date: Planned Disposition: Home with Home Health Primary Insurance: MEDICARE A & B PLANNED EXTERNAL PROVIDER: [facility] Discharge Planning Comments: CM RECEIVED NOTE INDICATING PT NEEDS A WALKER FOR HOME USE AND [facility]. CM MET WITH PT IN ROOM TO DISCUSS DISCHARGE NEEDS AND PLANNING. PT REPORTS LIVING AT HOME WITH SPOUSE AND STEP SON. PT REPORTS BEING INDEPENDENT IN HIS CARE. PT HAS ROLLING WALKER WITH NO MEDICAL EQUIPMENT PROVIDER. PT HAS [facility] FOR WHOM HIS DAUGHTER WORKS A NURSE. CM DISCUSSED AVAILABILITY OF HOME HEALTH, REHAB SERVICES AND MEDICAL EQUIPMENT. PT REPORTS ALREADY HAVING A WALKER AT HOME AND WANTS HOME HEALTH RESUMED HE HAS NURSING AND THERAPY AT HOME. CHOICE LETTER SIGNED FOR [facility]. STEP SON OR DAUGHTER TO TRANSPORT HOME AT DISCHARGE. IMPORTANT MESSAGE FROM MEDICARE PROVIDED AND EXPLAINED. FOR DISCHARGE FAX ORDER AND DISCHARGE INFORMATION TO [facility] OFF[facility] AT [phone], CALL AND NOTIFY [facility] OF DISCHARGE HOME AT [phone]. Collection Analyst: Oliver Echevarria DCPIA - Discharge Planning Initial Assessment Updated by [id number]: Oliver Echevarria on 01/15/19 4:56 pm * Is the patient Alert and Oriented? Yes * How many steps to enter\exit or inside your home? * PCP DR. CALDWELL IN [place] * Pharmacy [facility] IN [place] * Preadmission Environment Home with Family * ADLs Independent * Equipment Rolling Walker * Other Equipment NO MEDICAL EQUIPMENT PROVIDER PREFERENCE * List name and contact numbers for known caregivers / representatives who currently or will assist patient after discharge: DANK HERNANDEZ, SPOUSE, BRITTON DINERO, STEP SON, CHECO BAR, DTR, * Verbal permission to speak to the caregivers and representatives has been obtained from the patient. Yes * Community resources currently utilized Home Health * Please name any agencies selected above. [facility]YSICAL THERAPY * Additional services required to return to the preadmission environment? No * Can the patient safely return to the preadmission environment? Yes * Has this patient been hospitalized within the prior 30 days at any hospital? No Coverage Notice Reviewer: THU Echevarria Notice Issued Date-Time: 01/15/2019 9:20 Notice Type: Patient Choice Letter Notice Delivered To: Patient Relationship to Patient: Senior Android Software Engineer Name: Delivery Method: HAND - Hand Delivered Doretha Days: Prior Verbal Notification: Recipient Understood Notice: Yes Recipient Signature: Yes Med Rec Note Co-signed by Attending: Coverage Notice [facility] Reviewer: [id number] Echevarria Notice Issued Date-Time: 01/15/2019 9:20 Notice Type: IM Discharge Notice Notice Delivered To: Patient Relationship to Patient: Senior Android Software Engineer Name: Delivery Method: HAND - Hand Delivered Doretha Days: Prior Verbal Notification: Recipient Understood Notice: Yes Recipient Signature: Yes Med Rec Note Co-signed by Attending: Coverage Notice Comment: Last DP export: 01/15/19 4:08 p Patient Name: ISADORA HERNANDEZ Page [id number] at 1211 All edits/amendments must be made on the electronic document DICTATION DATE: 01/22/19 1211 RACE CAR MECHANIC: JOHNNIE 01/22/19 1211 RPT#: [id number] DC DATE: STATUS: ADM IN [facility] [address] [place] [address] END OF REPORT
--- NOTE | 2019-01-22 12:27 | MORECARE ---
CASE MANAGEMENT DISCHARGE SUMMARY PATIENT: ISADORA HERNANDEZ UNIT: [id number] ADM DATE: 01/10/19 AGE: 88 : [birth year] SEX: M ROOM/BED: D.2465 AUTHOR: RANDALL,DOC PHYSICIAN: REFERRING PHYSICIAN: ABBI JEAN BAPTISTE MD DATE OF SERVICE: 01/22/19 Discharge Plan Patient Name: ISADORA HERNANDEZ Facility: [facility]:[place] : 1930 Planned Disposition: Home with Home Health Anticipated Discharge Date: 01/22/19 Discharge Date: Expected LOS: 12 Initial Reviewer: [email or web address] Initial Review Date: 01/15/2019 Generated: 01/22/19 1:27 pm Comments DCP- Discharge Planning Updated by [email or web address]: Oliver Echevarria on 01/22/19 11:[address] Patient Name: ISADORA HERNANDEZ Encounter No: [id number] : 1930 Primary Insurance: MEDICARE A & B Anticipated DC Date: 01-22-2019 Planned Disposition: Home with Home Health External Planned Provider[facility] DCP follow-up note: CM RECEIVED ORDER FOR POSSIBLE HOSPICE, MET WITH PT IN ROOM AND DISCUSSED HOSPICE WITH PT. CM EXPLAINED WHAT HOSPICE IS, PROVIDERS AND LOCATIONS WELL GAVE PT LISTING OF PROVIDERS AND BROCHURES. PT IS NOT SURE IF HE WANTS HOSPICE, HE DOES WANT TO GO HOME AND WOULD LIKE TO TALK TO SOMEONE ABOUT HOME HOSPICE AND HAS NO PREFERENCE. CM EXPLAINED IN DETAIL THAT [facility] ALSO HAS A SISTER COMPANY OF [facility]. PT REPORTS ANY HOSPICE CAN COME TALK TO HIM, HE JUST WANTS INFORMATION NOW. PT SIGNED CHOICE FOR NO HOSPICE PREFERENCE. IMPORTANT MESSAGE FROM MEDICARE PROVIDED AND EXPLAINED. CM CALLED AND NOTIFIED ANGELIC OF [facility] [phone], WHO WILL COME AND MEET WITH PT TODAY, REFERRAL INFORMATION PROVIDED. PT PLANS TO DISCHARGE HOME WITH [facility] AND WILL MEET WITH [facility] TODAY FOR INFORMATION ONLY REGARDING HOSPICE. CM HAS ASKED PT TO NOTIFY CM IF PT CHANGES HIS MIND ABOUT HOSPICE SERVICES AT HOME. KATYA Pelletier DCP- Discharge Planning Updated by [email or web address]: Oliver Echevarria on 01/15/19 3:[address] Patient Name: ISADORA HERNANDEZ Admission Status: ER Accout number: [id number] Admission Date: 01-10-2019 : 1930 Admission Diagnosis:SHORTNESS OF BREATH Attending: ABBI JEAN BAPTISTE Current LOS: 5 Anticipated DC Date: Planned Disposition: Home with Home Health Primary Insurance: MEDICARE A & B PLANNED EXTERNAL PROVIDER: [facility] Discharge Planning Comments: CM RECEIVED NOTE INDICATING PT NEEDS A WALKER FOR HOME USE AND [facility]. CM MET WITH PT IN ROOM TO DISCUSS DISCHARGE NEEDS AND PLANNING. PT REPORTS LIVING AT HOME WITH SPOUSE AND STEP SON. PT REPORTS BEING INDEPENDENT IN HIS CARE. PT HAS ROLLING WALKER WITH NO MEDICAL EQUIPMENT PROVIDER. PT HAS [employer] [facility] FOR WHOM HIS DAUGHTER WORKS A NURSE. CM DISCUSSED AVAILABILITY OF HOME HEALTH, REHAB SERVICES AND MEDICAL EQUIPMENT. PT REPORTS ALREADY HAVING A WALKER AT HOME AND WANTS HOME HEALTH RESUMED HE HAS NURSING AND THERAPY AT HOME. CHOICE LETTER SIGNED FOR [facility]. STEP SON OR DAUGHTER TO TRANSPORT HOME AT DISCHARGE. IMPORTANT MESSAGE FROM MEDICARE PROVIDED AND EXPLAINED. FOR DISCHARGE FAX ORDER AND DISCHARGE INFORMATION TO [facility] OFFICE AT [phone], CALL AND NOTIFY [facility] OF DISCHARGE HOME AT [phone]. Certified Lactation Counselor: Oliver Echevarria [facility] - Discharge Planning Initial Assessment Updated by [id number]: Oliver Echevarria on 01/15/19 4:56 pm * Is the patient Alert and Oriented? Yes * How many steps to enter\exit or inside your home? * PCP DR. CALDWELL IN [place] * Pharmacy [facility] IN [place] * Preadmission Environment Home with Family * ADLs Independent * Equipment Rolling Walker * Other Equipment NO MEDICAL EQUIPMENT PROVIDER PREFERENCE * List name and contact numbers for known caregivers / representatives who currently or will assist patient after discharge: DANK HERNANDEZ, SPOUSE, BRITTON DINERO, STEP SON, CHECO DINERO, DTR, * Verbal permission to speak to the caregivers and representatives has been obtained from the patient. Yes * Community resources currently utilized Home Health * Please name any agencies selected above. [facility] - NURSING AND PHYSICAL THERAPY * Additional services required to return to the preadmission environment? No * Can the patient safely return to the preadmission environment? Yes * Has this patient been hospitalized within the prior 30 days at any hospital? No Coverage Notice Reviewer: [id number] Echevarria Notice Issued Date-Time: 01/15/2019 9:20 Notice Type: Patient Choice Letter Notice Delivered To: Patient Relationship to Patient: Thread Separator Name: Delivery Method: HAND - Hand Delivered Doretha Days: Prior Verbal Notification: Recipient Understood Notice: Yes Recipient Signature: Yes Med Rec Note Co-signed by Attending: Coverage Notice Comment: [facility] Reviewer: THU Echevarria Notice Issued Date-Time: 01/15/2019 9:20 Notice Type: IM Discharge Notice Notice Delivered To: Patient Relationship to Patient: Thread Separator Name: Delivery Method: HAND - Hand Delivered Doretha Days: Prior Verbal Notification: Recipient Understood Notice: Yes Recipient Signature: Yes Med Rec Note Co-signed by Attending: Coverage Notice Comment: Reviewer: THU Echevarria Notice Issued Date-Time: 01/22/2019 11:00 Notice Type: IM Discharge Notice Notice Delivered To: Patient Relationship to Patient: Thread Separator Name: Delivery Method: HAND - Hand Delivered Doretha Days: Prior Verbal Notification: Recipient Understood Notice: Yes Recipient Signature: Yes Med Rec Note Co-signed by Attending: Coverage Notice Comment: Reviewer: THU Echevarria Notice Issued Date-Time: 01/22/2019 11:00 Notice Type: Patient Choice Letter Notice Delivered To: Patient Relationship to Patient: Thread Separator Name: Delivery Method: HAND - Hand Delivered Doretha Days: Prior Verbal Notification: Recipient Understood Notice: Yes Recipient Signature: Yes Med Rec Note Co-signed by Attending: Coverage Notice Comment: NO HOSPICE PREFERENCE FOR INFORMATION Last DP export: 01/22/19 11:11 am Patient Name: ISADORA HERNANDEZ Page [phone] at 1227 All edits/amendments must be made on the electronic document DICTATION DATE: 01/22/19 1226 VENETIAN BLIND CLEANER: JOHNNIE 01/22/19 1226 RPT#: [id number] DC DATE: STATUS: ADM IN [facility] [address] [place] [address] END OF REPORT
[2019-01-22 12:53] VITALS: BP 96/36
--- NOTE | 2019-01-22 13:20 | NUR ---
PT SITTING UP IN BED RESTING QUIETLY. D/C GALARZA WITH BULB INTACT FULLY. REMOVED 8CC OF FLUID FROM BULB. INSTRUCTED PT ON USE OF URINAL SO WE CAN MONITER OUTPUT AND WATCH FOR RETENTION PT VERBALIZED UNDERSTANDING. PT DENIES ANY CURRENT PAIN OR NEEDS AT THIS TIME. CL IN REACH, BED IN LOWEST, SIDE RAILS X2. WILL CTM.
--- NOTE | 2019-01-22 14:35 | MORECARE ---
CASE MANAGEMENT DISCHARGE SUMMARY PATIENT: ISADORA HERNANDEZ UNIT: [id number] ADM DATE: 01/10/19 AGE: 88 : [birth year] SEX: M ROOM/BED: D.9572 AUTHOR: RANDALL,DOC PHYSICIAN: REFERRING PHYSICIAN: ABBI JEAN BAPTISTE MD DATE OF SERVICE: 01/22/19 Discharge Plan Patient Name: ISADORA HERNANDEZ Facility: [facility]:[place] : 1930 Planned Disposition: Home with Home Health Anticipated Discharge Date: 01/22/19 Discharge Date: Expected LOS: 12 Initial Reviewer: [id number] Initial Review Date: 01/15/2019 Generated: 01/22/19 3:35 pm Comments DCP- Discharge Planning Updated by [email or web address]: Oliver Echevarria on 01/22/19 1:[address] Patient Name: ISADORA HERNANDEZ Encounter No: [id number] : 1930 Primary Insurance: MEDICARE A & B Anticipated DC Date: 01-22-2019 Planned Disposition: Home with Home Health External Planned Provider[facility] [employer] [facility] DCP follow-up note: CM RECEIVED ORDER FOR POSSIBLE HOSPICE, MET WITH PT IN ROOM AND DISCUSSED HOSPICE WITH PT. CM EXPLAINED WHAT HOSPICE IS, PROVIDERS AND LOCATIONS WELL GAVE PT LISTING OF PROVIDERS AND BROCHURES. PT IS NOT SURE IF HE WANTS HOSPICE, HE DOES WANT TO GO HOME AND WOULD LIKE TO TALK TO SOMEONE ABOUT HOME HOSPICE AND HAS NO PREFERENCE. CM EXPLAINED IN DETAIL THAT [facility] ALSO HAS A SISTER COMPANY OF [facility]. PT REPORTS ANY HOSPICE CAN COME TALK TO HIM, HE JUST WANTS INFORMATION NOW. PT SIGNED CHOICE FOR NO HOSPICE PREFERENCE. IMPORTANT MESSAGE FROM MEDICARE PROVIDED AND EXPLAINED. CM CALLED AND NOTIFIED ANGELIC OF [facility] [phone], WHO WILL COME AND MEET WITH PT TODAY, REFERRAL INFORMATION PROVIDED. PT PLANS TO DISCHARGE HOME WITH [facility] AND WILL MEET WITH [facility] TODAY FOR INFORMATION ONLY REGARDING HOSPICE. CM HAS ASKED PT TO NOTIFY CM IF PT CHANGES HIS MIND ABOUT HOSPICE SERVICES AT HOME. Oliver Echevarria, CASE MANAGEMENT Appended by Oliver Echevarria on 01/22/2019 14:29 CDT: CM SPOKE TO ANGELIC OF [facility], HE HAS MET WITH PT AND DISCUSSED HOSPICE CARE WELL PROVIDED WRITTEN INFORMATION AT PT'S REQUEST. PT INFORMED ANGELIC THAT PT WILL SPEAK TO HIS DAUGHTER WHO IS A NURSE BEFORE MAKING ANY FURTHER DECISIONS REGARDING HOSPICE. ANGELIC REPORTS [facility] WILL FOLLOW UP WITH PT AT HOME AFTER DISCHARGE TO OFFER HOSPICE IF PT DESIRES THE SERVICE. HOSPICE WILL MAKE FOLLOW UP CONTACT WITH PT AT HOME TO OFFER HOSPICE SERVICES IF PT DESIRES HOSPICE. FOR DISCHARGE FAX HOME HEALTH ORDER AND DISCHARGE INFORMATION TO [facility] AT [phone], CALL AND NOTIFY [facility] OF DISCHARGE HOME AT [phone]. Policy Writer: Oliver Echevarria DCP- Discharge Planning Updated by [id number]: Oliver Echevarria on 01/15/19 3:[address] Patient Name: ISADORA HERNANDEZ Admission Status: ER Accout number: [id number] Admission Date: 01-10-2019 : 1930 Admission Diagnosis:SHORTNESS OF BREATH Attending: ABBI JEAN BAPTISTE Current LOS: 5 Anticipated DC Date: Planned Disposition: Home with Home Health Primary Insurance: MEDICARE A & B PLANNED EXTERNAL PROVIDER: [facility], [place] Discharge Planning Comments: CM RECEIVED NOTE INDICATING PT NEEDS A WALKER FOR HOME USE AND [facility]. CM MET WITH PT IN ROOM TO DISCUSS DISCHARGE NEEDS AND PLANNING. PT REPORTS LIVING AT HOME WITH SPOUSE AND STEP SON. PT REPORTS BEING INDEPENDENT IN HIS CARE. PT HAS ROLLING WALKER WITH NO MEDICAL EQUIPMENT PROVIDER. PT HAS [employer] [facility] FOR WHOM HIS DAUGHTER WORKS A NURSE. CM DISCUSSED AVAILABILITY OF HOME HEALTH, REHAB SERVICES AND MEDICAL EQUIPMENT. PT REPORTS ALREADY HAVING A WALKER AT HOME AND WANTS HOME HEALTH RESUMED HE HAS NURSING AND THERAPY AT HOME. CHOICE LETTER SIGNED FOR [facility]. STEP SON OR DAUGHTER TO TRANSPORT HOME AT DISCHARGE. IMPORTANT MESSAGE FROM MEDICARE PROVIDED AND EXPLAINED. FOR DISCHARGE FAX ORDER AND DISCHARGE INFORMATION TO [facility] AT [phone], CALL AND NOTIFY [facility] OF DISCHARGE HOME AT [phone]. Policy Writer: Oliver Echevarria DCA - Discharge Planning Initial Assessment Updated by [email or web address]: Oliver Echevarria on 01/15/19 4:56 pm * Is the patient Alert and Oriented? Yes * How many steps to enter\exit or inside your home? * PCP DR[facility] CALDWELL IN [place] * Pharmacy [facility] IN [place] * Preadmission Environment Home with Family * ADLs Independent * Equipment Rolling Walker * Other Equipment NO MEDICAL EQUIPMENT PROVIDER PREFERENCE * List name and contact numbers for known caregivers / representatives who currently or will assist patient after discharge: DANK HERNANDEZ, SPOUSE, BRITTON DINERO, STEP SON, CHECO DINERO, DTR, * Verbal permission to speak to the caregivers and representatives has been obtained from the patient. Yes * Community resources currently utilized Home Health * Please name any agencies selected above. [facility] * Additional services required to return to the preadmission environment? No * Can the patient safely return to the preadmission environment? Yes * Has this patient been hospitalized within the prior 30 days at any hospital? No Coverage Notice Reviewer: THU Echevarria Notice Issued Date-Time: 01/15/2019 9:20 Notice Type: Patient Choice Letter Notice Delivered To: Patient Relationship to Patient: Flight Physician Name: Delivery Method: HAND - Hand Delivered Doretha Days: Prior Verbal Notification: Recipient Understood Notice: Yes Recipient Signature: Yes Med Rec Note Co-signed by Attending: Coverage Notice Comment: [facility] Reviewer: THU Echeavrria Notice Issued Date-Time: 01/15/2019 9:20 Notice Type: IM Discharge Notice Notice Delivered To: Patient Relationship to Patient: Flight Physician Name: Delivery Method: HAND - Hand Delivered Doretha Days: Prior Verbal Notification: Recipient Understood Notice: Yes Recipient Signature: Yes Med Rec Note Co-signed by Attending: Coverage Notice Comment: Reviewer: THU Echevarria Notice Issued Date-Time: 01/22/2019 11:00 Notice Type: IM Discharge Notice Notice Delivered To: Patient Relationship to Patient: Flight Physician Name: Delivery Method: HAND - Hand Delivered Doretha Days: Prior Verbal Notification: Recipient Understood Notice: Yes Recipient Signature: Yes Med Rec Note Co-signed by Attending: Coverage Notice Comment: Reviewer: THU Echevarria Notice Issued Date-Time: 01/22/2019 11:00 Notice Type: Patient Choice Letter Notice Delivered To: Patient Relationship to Patient: Flight Physician Name: Delivery Method: HAND - Hand Delivered Doretha Days: Prior Verbal Notification: Recipient Understood Notice: Yes Recipient Signature: Yes Med Rec Note Co-signed by Attending: Coverage Notice Comment: NO HOSPICE PREFERENCE FOR INFORMATION Last DP export: 01/22/19 11:27 am Patient Name: ISADORA HERNANDEZ Page [id number] at 1435 All edits/amendments must be made on the electronic document DICTATION DATE: 01/22/191434 DEICER REPAIRER PNEUMATIC: JOHNNIE 01/22/191434 RPT#: [id number] DC DATE: STATUS: ADM IN [facility] [address] [place] [address] END OF REPORT
[2019-01-22 15:08] VITALS: BP 89/44
--- NOTE | 2019-01-22 15:22 | NUR ---
PT HAS NOT VOIDED SINCE GALARZA REMOVED BUT STATES HE HAS BEEN RESTING. NO CURRENT NEEDS, WILL CONTINUE TO MONITER FOR RETENTION. PT SITTING UP IN BED DENIES ANY CURRENT PAIN OR NEEDS AT THIS TIME.
--- NOTE | 2019-01-22 17:10 | NUR ---
PULLED PT UP IN BED FOR COMFORT AND SO HE CAN EAT SITTING UP IN BED. PT CURRENTLY EATING DINNER. PT VOIDED 75ML OF CLEAR YELLOW URINE. PT NORMALLY NOT VOIDING VERY MUCH ANYWAYS HOWEVER WILL STILL MONITER FOR RETENTION. PT VOICED THANKS AND DENIES ANY CURRENT PAIN OR NEEDS. CL IN REACH. WILL CTM.
--- NOTE | 2019-01-22 18:16 | NUR ---
PT NORMALLY CONTINENT HOWEVER HE CALLED STATING HE HAD AN ACCIDENT. PT WAS INCONTINENT OF BROWN DIARRHEA. COMPLETED BED CHANGE PROVIDED. PT VOICED THANKS AND IS SITTING UP ON EDGE OF BED. DENIES ANY CURRENT PAIN OR NEEDS. WILL CTM.
--- NOTE | 2019-01-22 19:00 | NUR ---
RESUMING PATIENT CARE. PATIENT IS ALERT AND ORIENTED. RESTING IN BED. RESPIRATIONS ARE EVEN AND UNLABORED. NO S/S OF DISTRESS. NO C/O PAIN. CALL LIGHT WITHIN REACH. WILL CPOC.
[2019-01-22 20:00] VITALS: BP 86/49
[2019-01-23 04:00] VITALS: BP 90/50
[2019-01-23 05:45] LABS: BASOPHILS 0.4 % (0-2); EOSINOPHILS 2.2 % (0-7); HEMATOCRIT 26.6 % (42.0-54.0); HEMOGLOBIN 8.9 g/dL (13.5-17.5); IMMATURE GRANULOCYTES 0.1 % (0-5); LYMPHOCYTES 21.3 % (15-50); MCH 30.1 pg (26.0-34.0); MCHC 33.5 g/dL (31.0-37.0); MCV 89.9 fL (80.0-100.0); MEAN PLATELET VOLUME 10.5 fL (7.4-10.4); MONOCYTES 12.5 % (2-11); NEUTROPHILS 63.5 % (40-80); RBC 2.96 10x6/uL (4.20-6.10); RDW 16.2 % (11.5-14.5); WBC 6.9 10x3/uL (4.8-10.8)
[2019-01-23 05:56] LABS: PLATELET COUNT 132 10x3/uL (130-400)
[2019-01-23 06:07] LABS: ANION GAP 13.9 mmol/L (8-16); CALCIUM 8.8 mg/dL (8.5-10.1); CARBON DIOXIDE 27.9 mmol/L (21.0-32.0); CREATININE - SERUM 1.5 mg/dL (0.6-1.3); POTASSIUM - SERUM 3.8 mmol/L (3.5-5.1)
[2019-01-23 09:23] VITALS: BP 97/47
[2019-01-23] MEDS ORDERED: COREG 3.1253.125 MG PO (12:08)
[2019-01-23 13:35] VITALS: BP 94/34
--- NOTE | 2019-01-23 14:15 | NUR ---
PT GOING TO BE DISCHARGED AND VERBALIZED UNDERSTANDING. D/C PTS L.FA PIV WITH CATHETER TIP FULLY INTACT. PT STATES HIS SON IS GOING TO PICK HIM UP IN A COUPLE HOURS. WAITING ON DISCHARGE PAPERS STILL. NO IMMEDIATE NEEDS. WILL CTM.
--- NOTE | 2019-01-23 15:46 | MORECARE ---
CASE MANAGEMENT DISCHARGE SUMMARY PATIENT: ISADORA HERNANDEZ UNIT: [id number] ADM DATE: 01/10/19 AGE: 88 : [birth year] SEX: M ROOM/BED: D.2119 AUTHOR: RANDALL,DOC PHYSICIAN: REFERRING PHYSICIAN: ABBI JEAN BAPTISTE MD DATE OF SERVICE: 01/23/19 Discharge Plan Patient Name: ISADORA HERNANDEZ Facility: [facility]:[place] : 1930 Planned Disposition: Home with Home Health Anticipated Discharge Date: 01/22/19 Discharge Date: Expected LOS: 12 Initial Reviewer: [id number] Initial Review Date: 01/15/2019 Generated: 01/23/19 4:45 pm Comments DCP- Discharge Planning Updated by [id number]: Oliver Echevarria on 01/23/19 2:[address] Patient Name: ISADORA HERNANDEZ Encounter No: [id number] : 1930 Primary Insurance: MEDICARE A & B Anticipated DC Date: 01-22-2019 Planned Disposition: Home with Home Health External Planned Provider: [facility], [place] [facility] DCP follow-up note: CM SPOKE TO ANGELIC OF [facility], PT DID NOT MAKE ANY DECISION REGARDING HOSPICE; [facility] WILL MAKE FOLLOW UP CONTACT WITH PT AT HOME. CM RECEIVED DISCHARGE ORDER, SPOKE TO PT IN ROOM, DISCUSSSED DISCHARGE PLAN, PT DOES NOT WANT HOSPICE NOW AND WANTS HIS HOME HEALTH RESUMED. PT IS HAPPY TO GO HOME TODAY. CM ASSISTED PT WITH CALLING HIS SON TO PICK HIM UP. BEDSIDE NURSE NOTIFIED. CM FAXED DISCHARGE INFORMATION TO [facility] AT [phone]. CM CALLED JULISA OF [facility], NOTIFIED OF DISCHARGE HOME, . APPETIZER PACKER NURSE NOTIFIED. Rn Intern: Oliver Echevarria DCP- Discharge Planning Updated by [id number]: Oliver Echevarria on 01/22/19 1:[address] Patient Name: ISADORA HERNANDEZ Encounter No: [id number] : 1930 Primary Insurance: MEDICARE A & B Anticipated DC Date: 01-22-2019 Planned Disposition: Home with Home Health External Planned Provider: [facility], [place] [facility] DCP follow-up note: CM RECEIVED ORDER FOR POSSIBLE HOSPICE, MET WITH PT IN ROOM AND DISCUSSED HOSPICE WITH PT. CM EXPLAINED WHAT HOSPICE IS, PROVIDERS AND LOCATIONS WELL GAVE PT LISTING OF PROVIDERS AND BROCHURES. PT IS NOT SURE IF HE WANTS HOSPICE, HE DOES WANT TO GO HOME AND WOULD LIKE TO TALK TO SOMEONE ABOUT HOME HOSPICE AND HAS NO PREFERENCE. CM EXPLAINED IN DETAIL THAT [facility] ALSO HAS A SISTER COMPANY OF [facility]. PT REPORTS ANY HOSPICE CAN COME TALK TO HIM, HE JUST WANTS INFORMATION NOW. PT SIGNED CHOICE FOR NO HOSPICE PREFERENCE. IMPORTANT MESSAGE FROM MEDICARE PROVIDED AND EXPLAINED. CM CALLED AND NOTIFIED ANGELIC OF [facility] [phone], WHO WILL COME AND MEET WITH PT TODAY, REFERRAL INFORMATION PROVIDED. PT PLANS TO DISCHARGE HOME WITH [facility] AND WILL MEET WITH [facility] TODAY FOR INFORMATION ONLY REGARDING HOSPICE. CM HAS ASKED PT TO NOTIFY CM IF PT CHANGES HIS MIND ABOUT HOSPICE SERVICES AT HOME. Oliver Echevarria, CASE MANAGEMENT Appended by Oliver Echevarria on 01/22/2019 14:29 CDT: CM SPOKE TO ANGELIC OF [facility], HE HAS MET WITH PT AND DISCUSSED HOSPICE CARE WELL PROVIDED WRITTEN INFORMATION AT PT'S REQUEST. PT INFORMED ANGELIC THAT PT WILL SPEAK TO HIS DAUGHTER WHO IS A NURSE BEFORE MAKING ANY FURTHER DECISIONS REGARDING HOSPICE. ANGELIC REPORTS [facility] WILL FOLLOW UP WITH PT AT HOME AFTER DISCHARGE TO OFFER HOSPICE IF PT DESIRES THE SERVICE. HOSPICE WILL MAKE FOLLOW UP CONTACT WITH PT AT HOME TO OFFER HOSPICE SERVICES IF PT DESIRES HOSPICE. FOR DISCHARGE FAX HOME HEALTH ORDER AND DISCHARGE INFORMATION TO [facility] AT [phone], CALL AND NOTIFY [facility] OF DISCHARGE HOME AT [phone]. Rn Intern: Oliver Echevarria DCP- Discharge Planning Updated by [id number]: Oliver Echevarria on 01/15/19 3:[address] Patient Name: ISADORA HERNANDEZ Admission Status: ER Accout number: [id number] Admission Date: 01-10-2019 : 1930 Admission Diagnosis:SHORTNESS OF BREATH Attending: ABBI JEAN BAPTISTE Current LOS: 5 Anticipated DC Date: Planned Disposition: Home with Home Health Primary Insurance: MEDICARE A & B PLANNED [facility]TERNAL [facility] Discharge Planning Comments: CM RECEIVED NOTE INDICATING PT NEEDS A WALKER FOR HOME USE AND [facility]. CM MET WITH PT IN ROOM TO DISCUSS DISCHARGE NEEDS AND PLANNING. PT REPORTS LIVING AT HOME WITH SPOUSE AND STEP SON. PT REPORTS BEING INDEPENDENT IN HIS CARE. PT HAS ROLLING WALKER WITH NO MEDICAL EQUIPMENT PROVIDER. PT HAS [employer] [facility] FOR WHOM HIS DAUGHTER WORKS A NURSE. CM DISCUSSED AVAILABILITY OF HOME HEALTH, REHAB SERVICES AND MEDICAL EQUIPMENT. PT REPORTS ALREADY HAVING A WALKER AT HOME AND WANTS HOME HEALTH RESUMED HE HAS NURSING AND THERAPY AT HOME. CHOICE LETTER SIGNED FOR [facility]. STEP SON OR DAUGHTER TO TRANSPORT HOME AT DISCHARGE. IMPORTANT MESSAGE FROM MEDICARE PROVIDED AND EXPLAINED. FOR DISCHARGE FAX ORDER AND DISCHARGE INFORMATION TO [facility] AT [phone], CALL AND NOTIFY [facility] OF DISCHARGE HOME AT [phone]. Rn Intern: [facility]ria [facility] Planning Initial Assessment Updated by [id number]: Oliver Echevarria on 01/15/19 4:56 pm * Is the patient Alert and Oriented? Yes * How many steps to enter\exit or inside your home? * PCP DR[facility] CAL[facility] IN [place] * Pharmacy [facility] IN [place] * Preadmission Environment Home with Family * ADLs Independent * Equipment Rolling Walker * Other Equipment NO MEDICAL EQUIPMENT PROVIDER PREFERENCE * List name and contact numbers for known caregivers / representatives who currently or will assist patient after discharge: DANK HERNANDEZ, SPOUSE, BRITTON DINERO, STEP SON, CHECO BAR, DTR, * Verbal permission to speak to the caregivers and representatives has been obtained from the patient. Yes * Community resources currently utilized Home Health * Please name any agencies selected above. [facility] * Additional services required to return to the preadmission environment? No * Can the patient safely return to the preadmission environment? Yes * Has this patient been hospitalized within the prior 30 days at any hospital? No Coverage Notice Reviewer: [id number] Gloria Echevarria Notice Issued Date-Time: 01/15/2019 9:20 Notice Type: Patient Choice Letter Notice Delivered To: Patient Relationship to Patient: Principal Architect Name: Delivery Method: HAND - Hand Delivered Doretha Days: Prior Verbal Notification: Recipient Understood Notice: Yes Recipient Signature: Yes Med Rec Note Co-signed by Attending: Coverage Notice Comment: [facility] Reviewer: [id number] Echevarria Notice Issued Date-Time: 01/15/2019 9:20 Notice Type: IM Discharge Notice Notice Delivered To: Patient Relationship to Patient: Principal Architect Name: Delivery Method: HAND - Hand Delivered Doretha Days: Prior Verbal Notification: Recipient Understood Notice: Yes Recipient Signature: Yes Med Rec Note Co-signed by Attending: Coverage Notice Comment: Reviewer: THU Echevarria Notice Issued Date-Time: 01/22/2019 11:00 Notice Type: IM Discharge Notice Notice Delivered To: Patient Relationship to Patient: Principal Architect Name: Delivery Method: HAND - Hand Delivered Doretha Days: Prior Verbal Notification: Recipient Understood Notice: Yes Recipient Signature: Yes Med Rec Note Co-signed by Attending: Coverage Notice Comment: Reviewer: THU Echevarria Notice Issued Date-Time: 01/22/2019 11:00 Notice Type: Patient Choice Letter Notice Delivered To: Patient Relationship to Patient: Principal Architect Name: Delivery Method: HAND - Hand Delivered Doretha Days: Prior Verbal Notification: Recipient Understood Notice: Yes Recipient Signature: Yes Med Rec Note Co-signed by Attending: Coverage Notice Comment: NO HOSPICE PREFERENCE FOR INFORMATION Last DP export: 01/22/19 1:35 pm Patient Name: ISADORA HERNANDEZ Page [id number] at 1546 All edits/amendments must be made on the electronic document DICTATION DATE: 01/23/191544 PROP DRAWER: JOHNNIE 01/23/191544 RPT#: [id number] DC DATE: STATUS: ADM IN [facility] [address] [place] [address] END OF REPORT
--- NOTE | 2019-01-23 15:57 | MORECARE ---
CASE MANAGEMENT DISCHARGE SUMMARY PATIENT: ISADORA HERNANDEZ UNIT: [id number] ADM DATE: 01/10/19 AGE: 88 : [birth year] SEX: M ROOM/BED: D.2119 AUTHOR: RANDALL,DOC PHYSICIAN: REFERRING PHYSICIAN: ABBI JEAN BAPTISTE MD DATE OF SERVICE: 01/23/19 Discharge Plan Patient Name: ISADORA HERNANDEZ Facility: [facility]:[place] : 1930 Planned Disposition: Home with Home Health Anticipated Discharge Date: 01/23/19 Discharge Date: Expected LOS: 13 Initial Reviewer: [id number] Initial Review Date: 01/15/2019 Generated: 01/23/19 4:57 pm Comments DCP- Discharge Planning Updated by [id number]: Oliver Echevarria on 01/23/19 2:[address] Patient Name: ISADORA HERNANDEZ Encounter No: [id number] : 1930 Primary Insurance: MEDICARE A & B Anticipated DC Date: 01-22-2019 Planned Disposition: Home with Home Health External Planned Provider: [employer] [facility] [place] [facility] DCP follow-up note: CM SPOKE TO ANGELIC OF [facility], PT DID NOT MAKE ANY DECISION REGARDING HOSPICE; [facility] WILL MAKE FOLLOW UP CONTACT WITH PT AT HOME. CM RECEIVED DISCHARGE ORDER, SPOKE TO PT IN ROOM, DISCUSSSED DISCHARGE PLAN, PT DOES NOT WANT HOSPICE NOW AND WANTS HIS HOME HEALTH RESUMED. PT IS HAPPY TO GO HOME TODAY. CM ASSISTED PT WITH CALLING HIS SON TO PICK HIM UP. BEDSIDE NURSE NOTIFIED. CM FAXED DISCHARGE INFORMATION TO [facility] AT [phone]. CM CALLED JULISA OF [facility], NOTIFIED OF DISCHARGE HOME, . SLEEPING CAR CONDUCTOR NURSE NOTIFIED. Concrete Grinder Operator: Oliver Echevarria DCP- Discharge Planning Updated by [id number]: Oliver Echevarria on 01/22/19 1:[address] Patient Name: ISADORA HERNANDEZ Encounter No: [id number] : 1930 Primary Insurance: MEDICARE A & B Anticipated DC Date: 01-22-2019 Planned Disposition: Home with Home Health External Planned Provider: [facility], [place] [facility] DCP follow-up note: CM RECEIVED ORDER FOR POSSIBLE HOSPICE, MET WITH PT IN ROOM AND DISCUSSED HOSPICE WITH PT. CM EXPLAINED WHAT HOSPICE IS, PROVIDERS AND LOCATIONS WELL GAVE PT LISTING OF PROVIDERS AND BROCHURES. PT IS NOT SURE IF HE WANTS HOSPICE, HE DOES WANT TO GO HOME AND WOULD LIKE TO TALK TO SOMEONE ABOUT HOME HOSPICE AND HAS NO PREFERENCE. CM EXPLAINED IN DETAIL THAT [facility] ALSO HAS A [facility]. PT REPORTS ANY HOSPICE CAN COME TALK TO HIM, HE JUST WANTS INFORMATION NOW. PT SIGNED CHOICE FOR NO HOSPICE PREFERENCE. IMPORTANT MESSAGE FROM MEDICARE PROVIDED AND EXPLAINED. CM CALLED AND NOTIFIED ANGELIC OF [facility] [phone], WHO WILL COME AND MEET WITH PT TODAY, REFERRAL INFORMATION PROVIDED. PT PLANS TO DISCHARGE HOME WITH [facility] AND WILL MEET WITH [facility] TODAY FOR INFORMATION ONLY REGARDING HOSPICE. CM HAS ASKED PT TO NOTIFY CM IF PT CHANGES HIS MIND ABOUT HOSPICE SERVICES AT HOME. Oliver Echevarria, CASE MANAGEMENT Appended by Oliver Echevarria on 01/22/2019 14:29 CDT: CM SPOKE TO ANGELIC OF [facility], HE HAS MET WITH PT AND DISCUSSED HOSPICE CARE WELL PROVIDED WRITTEN INFORMATION AT PT'S REQUEST. PT INFORMED ANGELIC THAT PT WILL SPEAK TO HIS DAUGHTER WHO IS A NURSE BEFORE MAKING ANY FURTHER DECISIONS REGARDING HOSPICE. ANGELIC REPORTS [facility] WILL FOLLOW UP WITH PT AT HOME AFTER DISCHARGE TO OFFER HOSPICE IF PT DESIRES THE SERVICE. HOSPICE WILL MAKE FOLLOW UP CONTACT WITH PT AT HOME TO OFFER HOSPICE SERVICES IF PT DESIRES HOSPICE. FOR DISCHARGE FAX HOME HEALTH ORDER AND DISCHARGE INFORMATION TO [facility] AT [phone], CALL AND NOTIFY [facility] OF DISCHARGE HOME AT [phone]. Concrete Grinder Operator: Oliver Echevarria DCP- Discharge Planning Updated by [id number]: Oliver Echevarria on 01/15/19 3:[address] Patient Name: ISADORA HERNANDEZ Admission Status: ER Accout number: [id number] Admission Date: 01-10-2019 : 1930 Admission Diagnosis:SHORTNESS OF BREATH Attending: ABBI JEAN BAPTISTE Current LOS: 5 Anticipated DC Date: Planned Disposition: Home with Home Health Primary Insurance: MEDICARE A & B PLANNED EXTERNAL PROVIDER[facility] Discharge Planning Comments: CM RECEIVED NOTE INDICATING PT NEEDS A WALKER FOR HOME USE AND [facility]. CM MET WITH PT IN ROOM TO DISCUSS DISCHARGE NEEDS AND PLANNING. PT REPORTS LIVING AT HOME WITH SPOUSE AND STEP SON. PT REPORTS BEING INDEPENDENT IN HIS CARE. PT HAS ROLLING WALKER WITH NO MEDICAL EQUIPMENT PROVIDER. PT HAS [facility] FOR WHOM HIS DAUGHTER WORKS A NURSE. CM DISCUSSED AVAILABILITY OF HOME HEALTH, REHAB SERVICES AND MEDICAL EQUIPMENT. PT REPORTS ALREADY HAVING A WALKER AT HOME AND WANTS HOME HEALTH RESUMED HE HAS NURSING AND THERAPY AT HOME. CHOICE LETTER SIGNED FOR [facility]. STEP SON OR DAUGHTER TO TRANSPORT HOME AT DISCHARGE. IMPORTANT MESSAGE FROM MEDICARE PROVIDED AND EXPLAINED. FOR DISCHARGE FAX ORDER AND DISCHARGE INFORMATION TO [facility] AT [phone], CALL AND NOTIFY [facility] OF DISCHARGE HOME AT [phone]. Concrete Grinder Operator: Oliver Echevarria [facility] - Discharge Planning Initial Assessment Updated by [id number]: Oliver Echevarria on 01/15/19 4:56 pm * Is the patient Alert and Oriented? Yes * How many steps to enter\exit or inside your home? * PCP DR. CALDWELL IN [place] * Pharmacy [facility] [place] * Preadmission Environment Home with Family * ADLs Independent * Equipment Rolling Walker * Other Equipment NO MEDICAL EQUIPMENT PROVIDER PREFERENCE * List name and contact numbers for known caregivers / representatives who currently or will assist patient after discharge: DANK HERNANDEZ, SPOUSE, BRITTON DINERO, STEP SON, CHECO BAR, DTR, * Verbal permission to speak to the caregivers and representatives has been obtained from the patient. Yes * Community resources currently utilized Home Health * Please name any agencies selected above. [facility] * Additional services required to return to the preadmission environment? No * Can the patient safely return to the preadmission environment? Yes * Has this patient been hospitalized within the prior 30 days at any hospital? No Coverage Notice Reviewer: [id number] Gloria Echevarria Notice Issued Date-Time: 01/22/2019 11:00 Notice Type: Patient Choice Letter Notice Delivered To: Patient Relationship to Patient: Insulation Estimator Name: Delivery Method: HAND - Hand Delivered Doretha Days: Prior Verbal Notification: Recipient Understood Notice: Yes Recipient Signature: Yes Med Rec Note Co-signed by Attending: Coverage Notice Comment: NO HOSPICE PREFERENCE FOR INFORMATION Reviewer: [id number] Echevarria Notice Issued Date-Time: 01/15/2019 9:20 Notice Type: Patient Choice Letter Notice Delivered To: Patient Relationship to Patient: Insulation Estimator Name: Delivery Method: HAND - Hand Delivered Doretha Days: Prior Verbal Notification: Recipient Understood Notice: Yes Recipient Signature: Yes Med Rec Note Co-signed by Attending: Coverage Notice Comment: [facility] Reviewer: [id number] Gloria Echevarria Notice Issued Date-Time: 01/22/2019 11:00 Notice Type: IM Discharge Notice Notice Delivered To: Patient Relationship to Patient: Insulation Estimator Name: Delivery Method: HAND - Hand Delivered Doretha Days: Prior Verbal Notification: Recipient Understood Notice: Yes Recipient Signature: Yes Med Rec Note Co-signed by Attending: Coverage Notice Comment: Reviewer: [id number] Echevarria Notice Issued Date-Time: 01/15/2019 9:20 Notice Type: IM Discharge Notice Notice Delivered To: Patient Relationship to Patient: Insulation Estimator Name: Delivery Method: HAND - Hand Delivered Doretha Days: Prior Verbal Notification: Recipient Understood Notice: Yes Recipient Signature: Yes Med Rec Note Co-signed by Attending: Coverage Notice Comment: Last DP export: 01/23/19 2:45 pm Patient Name: ISADORA HERNANDEZ Page [id number] at 1557 All edits/amendments must be made on the electronic document DICTATION DATE: 01/23/191556 SMALL BOAT ENGINEER: JOHNNIE 01/23/191556 RPT#: [id number] DC DATE: STATUS: ADM IN [facility] [address] [place] [address] END OF REPORT
[2019-01-23 18:00] VITALS: BP 81/41
--- NOTE | 2019-01-23 19:34 | NUR ---
DISCHARGE TEACHING PROVIDED AND PAPERS SIGNED. PTS FAMILY HERE TO TAKE HIM HOME. ALL BELONGINGS COLLECTED AND BAGGED FOR PT. NO FURTHER NEEDS AT THIS TIME.
== END 2019-01-23 19:36 | disposition home health service (06) | DRG 291 ==
LOC: D.ER 01:25 → D.M2 02:00 → D.ICU 02:00 → D.M2 01-12 16:51
PROVIDERS: Family Medicine; Internal Medicine Nephrology; ADMIT Internal Medicine Nephrology; ATTEND Internal Medicine Nephrology
DX: I11.0 Hypertensive heart disease with heart failure (principal); J96.01 Acute respiratory failure with hypoxia; I82.220 Acute embolism and thrombosis of inferior vena cava; N17.9 Acute kidney failure, unspecified; E87.1 Hypo-osmolality and hyponatremia; D68.9 Coagulation defect, unspecified; I50.23 Acute on chronic systolic (congestive) heart failure; E78.5 Hyperlipidemia, unspecified; I25.10 Atherosclerotic heart disease of native coronary artery without angina pectoris; J44.9 Chronic obstructive pulmonary disease, unspecified; E11.9 Type 2 diabetes mellitus without complications; Z95.0 Presence of cardiac pacemaker; D50.9 Iron deficiency anemia, unspecified; I48.2 Chronic atrial fibrillation; I08.1 Rheumatic disorders of both mitral and tricuspid valves; K76.1 Chronic passive congestion of liver